=== PATIENT | male | born 1935 | race Caucasian/White ===

== ENCOUNTER 2020-10-21 13:58 | Inpatient (IN) | payer OTHER, MEDICARE ==
[~2020-10-21] VITALS: Ht 180.3 cm; Wt 109.3 kg
[2020-10-21 15:24] LABS: BASOPHILS ABSOLUTE AUTO 0.05 K/mm3 (0.00-0.23); BASOPHILS PERCENT AUTO 1 % (0-2); EOSINOPHILS ABSOLUTE AUTO 0.02 K/mm3 (0.00-0.68); EOSINOPHILS PERCENT AUTO 0 % (0-6); Hematocrit 52.6 % (37.0-53.0); IMMATURE GRAN ABSOLUTE AUTO 0.04 K/mm3 (0.00-0.10); IMMATURE GRAN PERCENT AUTO 0 % (0-1); LYMPHOCYTES ABSOLUTE AUTO 0.81 K/mm3 (0.84-5.20); LYMPHOCYTES PERCENT AUTO 8 % (21-46); MONOCYTES ABSOLUTE AUTO 0.41 K/mm3 (0.16-1.47); MONOCYTES PERCENT AUTO 4 % (4-13); Mean Corpuscular HGB 28.5 pg (26.0-34.0); Mean Corpuscular HGB Conc 32.3 g/dL (31.5-36.5); Mean Corpuscular Volume 88 fL (80-100); Mean Platelet Volume 10.7 fL (9.1-12.4); NEUTROPHILS ABSOLUTE AUTO 9.08 K/mm3 (1.96-9.15); NEUTROPHILS PERCENT AUTO 87 % (41-73); Platelet Count 234 K/mm3 (150-400); RDW Coefficient Variation 12.1 % (11.7-14.2); RDW Standard Deviation 39.3 fL (35.1-46.3); Red Blood Cell Count 5.97 M/mm3 (4.30-5.90); White Blood Cell Count 10.41 K/mm3 (4.00-11.30)
[2020-10-21 15:39] LABS: Alanine Aminotransfer (ALT/SGP 28 U/L (12-78); Albumin, Blood 4.4 g/dL (3.4-5.0); Albumin/Globulin Ratio 1.1 (0.8-1.8); Alk Phos 75 U/L (50-136); Anion Gap 8 mmol/L (6-16); Aspartate Aminotrans (AST/SGOT 25 U/L (12-37); Bilirubin, Total 0.6 mg/dL (0.1-1.0); Blood Urea Nitrogen 14 mg/dL (8-24); Bun/Creatinine Ratio 14.7 (12.0-20.0); CO2, Blood 28 mmol/L (21-32); Calcium, Blood 10.7 mg/dL (8.5-10.1); Chloride, Blood 106 mmol/L (98-108); Creatinine, Blood 0.95 mg/dL (0.60-1.20); Globulin, Blood 4.1 g/dL (2.2-4.0); Glomerular Filtration Rate >60 (60-); Glucose, Blood 128 mg/dL (70-99); Potassium, Blood 3.6 mmol/L (3.5-5.5); Sodium, Blood 142 mmol/L (136-145); Total Protein, Blood 8.5 g/dL (6.4-8.2); Troponin I <0.015 ng/mL (0.000-0.040)
[2020-10-21] MEDS ORDERED: LATA.005SO RIGHTEYE (18:26)
--- NOTE | 2020-10-21 19:45 | NUR ---
PT ARRIVES TRANSFER FROM ED, REPORT TAKEN FROM DENISHA LUJAN. PT ALERT, ORIENTED TO SELF, ABLE TO FOLLOW SIMPLE COMMANDS, HOWEVER PT STS HE DOES NOT KNOW WHERE HE IS AT BUT KNOWS HE IS IN [place]. BELIEVES THE YEAR TO BE 2020. OFTEN CONFUSED BY VS EQUIPMENT, ATTEMPTS TO USE BIOX & CALL LIGHT PHONE. REORIENTED SEVERAL TIMES ON APPROPRIATE USE OF CALL LIGHT, WHICH HE QUICKLY FORGETS. REPORT FAMILY PT HAS DEMENTIA HOWEVER PT DENIES THIS & NO [facility] RECORDS REFLECT DX. MONITOR SHOWS SINUS RHYTHM ISUPREL GTT INF @ 2.5mcg/min UPON ARRIVAL, HR 120s. PLACED ON STANDBY. DR MOSER TO ROOM, UPDATED ON PT STATUS & DRIP. ORDERS TO HAVE ATROPINE & EPI AVAILABLE @ BEDSIDE. DR MOSER CALLS PT TO DISCUSS PLAN FOR SURGERY IN THE MORNING FOR PACEMAKER PLACMENT, VERBAL CONSENT FOR PROCEDURE OBTAINED FROM .
[2020-10-21 20:46] LABS: Influenza A, PCR Negative (NEGATIVE); Influenza B, PCR Negative (NEGATIVE); Resp Syncytial Virus, PCR Negative (NEGATIVE); SARS-Cov-2 (COVID-19) PCR, MMC Negative (NEGATIVE)
--- NOTE | 2020-10-22 | NUR ---
CARDIAC EVENT: TO PT ROOM RELATED TO BRADYCARDIA ALARM. HR 30s, PT SLUMPED OVER IN BED, NOT RESPONSIVE TO VERBAL OR NOXIOUS STIMULI. MONITOR SHOWED CONVERSION TO A SINUS RHYTHM, PT AROUSABLE, CONFUSED. C/O MILD NAUSEA. PULSES PRESENT. HR 70s.
[2020-10-22 00:58] LABS: Source, Urine Clean Catch
[2020-10-22 01:03] LABS: Appearance, Urine Clear (Clear); Bilirubin, Urine Neg (Neg); Blood, Urine 1+ (Neg); Color, Urine Amber (P-Yellow); Glucose Qualitative, Urine Neg (Neg); Ketones, Urine 1+ (Neg); Leukocyte Esterase, Urine 1+ (Neg); Nitrite, Urine Neg (Neg); Protein, Urine 2+ (Neg); Urobilinogen, Urine NORM (Normal)
[2020-10-22 01:09] LABS: Bacteria Many /hpf; Mucus Heavy (0-Heavy); Red Blood Cells, Urine 0-2 /hpf (0-2); Squamous Epithelial Cells Not Seen /hpf (Few)
[2020-10-22 04:00] LABS: BASOPHILS ABSOLUTE AUTO 0.02 K/mm3 (0.00-0.23); BASOPHILS PERCENT AUTO 0 % (0-2); EOSINOPHILS ABSOLUTE AUTO 0.02 K/mm3 (0.00-0.68); EOSINOPHILS PERCENT AUTO 0 % (0-6); Hematocrit 45.8 % (37.0-53.0); Hemoglobin 14.9 g/dL (13.5-17.5); IMMATURE GRAN ABSOLUTE AUTO 0.03 K/mm3 (0.00-0.10); IMMATURE GRAN PERCENT AUTO 0 % (0-1); LYMPHOCYTES ABSOLUTE AUTO 1.29 K/mm3 (0.84-5.20); LYMPHOCYTES PERCENT AUTO 11 % (21-46); MONOCYTES ABSOLUTE AUTO 0.94 K/mm3 (0.16-1.47); MONOCYTES PERCENT AUTO 8 % (4-13); Mean Corpuscular HGB 28.3 pg (26.0-34.0); Mean Corpuscular HGB Conc 32.5 g/dL (31.5-36.5); Mean Corpuscular Volume 87 fL (80-100); Mean Platelet Volume 10.7 fL (9.1-12.4); NEUTROPHILS ABSOLUTE AUTO 9.42 K/mm3 (1.96-9.15); NEUTROPHILS PERCENT AUTO 80 % (41-73); Platelet Count 224 K/mm3 (150-400); RDW Coefficient Variation 12.3 % (11.7-14.2); RDW Standard Deviation 39.2 fL (35.1-46.3); Red Blood Cell Count 5.27 M/mm3 (4.30-5.90); White Blood Cell Count 11.72 K/mm3 (4.00-11.30)
[2020-10-22 04:13] LABS: International Normalized Ratio 1.08; Prothrombin Time Results 11.5 Sec (9.7-11.5)
[2020-10-22 04:14] LABS: Anion Gap 5 mmol/L (6-16); Blood Urea Nitrogen 21 mg/dL (8-24); Bun/Creatinine Ratio 19.6 (12.0-20.0); CO2, Blood 29 mmol/L (21-32); Calcium, Blood 9.8 mg/dL (8.5-10.1); Chloride, Blood 109 mmol/L (98-108); Creatinine, Blood 1.07 mg/dL (0.60-1.20); Glomerular Filtration Rate >60 (60-); Glucose, Blood 126 mg/dL (70-99); Potassium, Blood 4.1 mmol/L (3.5-5.5); Sodium, Blood 143 mmol/L (136-145)
--- NOTE | 2020-10-22 06:42 | NUR ---
SHIFT SUMMARY: NO CHANGES TO PT MENTATION. CONTINUES TO BE CALM & COOPERATIVE, HOWEVER VERY FORGETFUL. PT SLEPT SOUNDLY FOR MOST OF THE NIGHT, AWAKENED FEW TIMES TO REPOSITION SELF. BED ALARM REMAINS IN PLACE PT ATTEMPTS TO GET UP, REQUESTING RESTROOM. EASILY REORIENTED. ABLE TO USE URINAL W/ 1P ASSIST. PT REPORTS NEW ONSET OF PAIN W/ URINATION. UA SENT & RESULTS TO [facility]E W/ NEW ORDERS FOR 1G IV ROCEPHIN DAILY. PT REMAINED SINUS RHYTHM THROUGHOUT SHIFT W/ 1 EPISODE OF BRADYCARDIA WHERE PT APPEARED TO GO INTO JUNCTIONAL RHYTHM W/ A LONG PAUSE & THEN CONVERTED BACK TO SINUS RHYTHM. SEE PREVIOUS NOTE.
--- NOTE | 2020-10-22 08:00 | NUR ---
Receieved report fro Debbie RN & Jamila RN. Patient awake and able to communicate needs, but is very hard of hearing and has signs of some dementia. He is on 2L O2 via NC and sats and sats 100%. He has 18ga IV in LH, flushed and SL and he has LEJ infusing NS at 100 ml/hr. HR in the 60 and plan is to have pacer placement at 1130.
--- NOTE | 2020-10-22 11:34 | NUR ---
Power glide placed in TOMMY and patient peels dresssing and kinked PowerGlide and replaced with 18/10 powerglide and reinforced dressing. He is very confuse and calls frquently and re-directs easily. VSS, See EMR. Removed O2 and sats 96% on RA. He is anxioius about procedure to get done and states "wants out of here". MAEW. HR been in the 60's and no pauses. Removed LEJ intact. Patient continues with NS at 100ml/hr.
--- NOTE | 2020-10-22 12:02 | NUR ---
Patient just left to hospital laboratory technician for pacer placement.
--- NOTE | 2020-10-22 15:56 | NUR ---
Patient returned with security back from lab tester. He was disoriented thinking we brought him back to his house and had to strongly encourage him that he was in ICU, and the plan is to interogate in am and then discharge. Agreed to stay til tomorrow Pacer site has telfa and clear opsite dressing, C/D/I and no current oozing of blood. VSS, See EMR, HR 70-80's. 100 ml/hr NS
--- NOTE | 2020-10-22 17:47 | NUR ---
Patient states that he will stay until tomorrow, he is told that should go home by noon and thenm he states 6am, and just needs to be reoriented to plan. His VSS, See EMR. He has been instructednot to use right arm. He refuses sling and i have pick other battles to get him to do. he sat up and ate 100% dinner and followed instructions. NS continues at 100ml/hr. Uses urinal appropriately.
--- NOTE | 2020-10-22 19:45 | NUR ---
ASSUMED CARE: REPORT TAKEN FROM RN BARBARA. PT SITTING UP IN BED, AWAKES & INTERACTS W/ STAFF UPON ENTERING. ORIENTED TO SELF & PLACE, HOWEVER PT CONFUSED TO WHEN HE IS GOING HOME TOMORROW AFTER SEVERAL REMINDERS FROM STAFF. PT IS FIXATED ON CALLING SEVERAL PEOPLE, REFUSES TO PUT PHONE AWAY & IS ADAMANT STAFF GIVE HIM INFORMATION ABOUT A RELATIVE'S LOCATION & PHONE #, HE IS NOT ABLE TO ELABORATE. WHEN ASKED F/U QUESTIONS, PT APPEARS CONFUSED & RESPONDS W/ UNRELATED SUBJECTS. THIS CONFUSION & INC AGITATION IS MARKEDLY WORSE THAN WHEN THIS RN GAVE CARE YESTERDAY. BASELINE MENTATION INDISTINGUISHABLE AFTER SPEAKING W/ FAMILY. PT IS OTHER ENRIQUE STABLE. RR EVEN & UNLABORED. LS CLEAR THROUGHOUT. HRR, PACED ATRIAL RHYTHM ON MONITOR. HR 60s-70s. SBP 160s. SURGICAL SITE TO R UPPER CHEST APPEARS WNL, DRESSING C/D/I. PLAN FOR PACEMAKER INTERROGATION IN THE AM & PLAN FOR DC.
--- NOTE | 2020-10-23 | NUR ---
CONFUSION/AGGRESSION: PT INCREASINGLY CONFUSED. CALLING OUT FOR "ELBERT" & ASKING IF "SOMEONE IS IN THE KITCHEN". SEVERAL ATTEMPTS @ REDIRECTION & VERBAL CUES BEFORE PT WAS ABLE TO BE REORIENTED, HOWEVER ONLY MOMENTARILY TO SELF & PLACE. DOES NOT RECEIVE INSTRUCTION WELL, REPLIES W/ VERBAL AGGRESSION & CURSING. DESPITE BED ALARM, PT CONTINUES TO SWING HIS LEGS OVER THE RAILS & QUICKLY POSITION HIMSELF IN VERY UNSAFE POSITIONS, NEARLY FALLING OUT OF BED. SANDRA BOWSER UPDATED ON PT STATUS. VERBAL ORDERS GIVEN FOR VEST & SWB RESTRAINTS. APPLIED & TOLERATING WELL AT THIS TIME. SEE RESTRAINT ASSESSMENTS.
--- NOTE | 2020-10-23 02:40 | NUR ---
AGITATION/RESTLESSNESS PT CONTINUES TO BE RESTLESS AND AGITATED. ORIENTED TO SELF ONLY AT THIS TIME. CONFUSED CONVERSATION. DR. CHONG NOTIFIED AND NEW ORDER RECEIVED FOR HALDOL IV.
--- NOTE | 2020-10-23 03:00 | NUR ---
OXYGEN/DECREASED SATS O2 SATS DECREASED TO 85-86% WHILE ASLEEP. INCREASE TO LOW 90s WHEN AWAKE. O2 2L NC ON AT THIS TIME.
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
--- NOTE | 2020-10-23 07:33 | NUR ---
Receivedreport from Jamila DENNY and Shellie RN. Patient sleeping in bed and awakened him for report and repositioning. He started to get loud and i explained to him that is not acceptable behavior. He started to get out of bed and came back in room and walked him to bathroom. He sat there for about ten minutes and placed him back in bed. He is slightly unstable on feet and needs assistance. He is on RA and sats >90%. I took him out of soft wrist and isabella restraint, he is now calm and resting. Right pacer site looks C/D/I and no signs of bleeding. He refuses to wear sling and when talking with family yesterday he will take off as soon as he leaves hospital. On report he was being dual paced in the 60 and is currently 66 and refuses to have monitor hooked up.
--- NOTE | 2020-10-23 09:22 | NUR ---
[employer] rep called and wanted remote transmission and went to PCU and aquiered device and hooked up and was sent to rep than cardiology. Patient has been resting and will allow to sleep until possible discharge. VSS, See EMR. NS continues at TKO.
--- NOTE | 2020-10-23 10:41 | NUR ---
Patient had fall after climbing out of bed with bed alarm on and failed seeMATTY. He stated he hit his head and palpated and no bumps or painful area's. he was able with assist and stood and walked to bathroom wit one assist. He stated he feels weak. I talked with family and they stated his baseline he walks his dogs daily. Talked with Dr Ron and she will place on medical floor back hallway. He is back in bed and bed alarm set and resting, he stated he would stay to see if gets stronger. Daughter Liliana stated that they could take care of even after me stated that he was very weak and unstable. He has 2L O2 via NC while sleeping, VSS, See EMR.
--- NOTE | 2020-10-23 12:57 | NUR ---
Transferred patient to [facility] via icu bed. He transferred with one assist to bathroom and 1 to [facility] bedplaced diet and PT/OT orders as well as tele and transfer. Spoke with Sangita DENNY and she helped with patient and got settled. She placed bed alarm on prior to me leaving.
--- NOTE | 2020-10-23 18:36 | NUR ---
SHIFT SUMMARY PT WAS TRANSFERED FROM ICU FOLLOWING A FALL HE SUSTAINED THIS AM. THE PT ARRIVED W NO S/S OF TRAUMA FROM FALL. PT IS VERY CONFUSED AND FORGETS STAFF AND SITUATION FREQUENTLY. THE PT WAS EXPERIENCING DIFFICULTY VOIDING SO HE WAS BLADDER SCANNED WHICH REVIELED RETENTION OF >999, STRAIGHT CATH REMOVED 700ML. 3 HOURS LATER ANOTHER BLADDER SCAN WAS DONE WHICH SHOWED RETENTION OF 866ML AND STRAIGHT CATH REMOVED 500ML BBUT PT DID NOT TOLERATE THE STRAIGHT CATH WELL. DR. WILSON WAS CONTACTED AND HIS FLUIDS WERE DC'D AND FLOMAX WAS STARTED. PT DENIES ANY HX OF BPH OR DEMENTIA.PTHAS DENIED ANY PAIN OR NAUSEA THIS SHIFT. WCTM.
--- NOTE | 2020-10-23 20:44 | NUR ---
1944 REPORT RECEIVED FROM DENISHA JACKSON; PTS RIGHT UPPER CHEST PACEMAKER DRESSING DRY AND INTACT; TELEMETRY REFLECTS NSR PER ERROL--CONE WORKER; ALERT AND ORIENTED X 2, ABLE TO FOLLOW SIMPLE VERBAL COMMANDS; YELLOW FALL GOWN APPLIED PT HAD FALL TODAY EARLIER IN ICU; BED ALARM APPLIED FOR SAFETY.
--- NOTE | 2020-10-24 04:07 | NUR ---
SHIFT SUMMARY: 85 Y/O OBESE MALE HAD RESTLESS NIGHT FIRST HALF OF SHIFT WITH INABILITY TO VOID AFTER MULTIPLE ATTEMPTS ON BSC; PT WAS BLADDER SCANNED FOR >999ML IN BLADDER; PT WAS THEN STRAIGHT CATHED FOR 950ML CLEAR YELLOW URINE WITH PT VOICING HE FELT MUCH BETTER AFTERWARDS; PT WAS THEN ABLE TO REST COMFORTABLY REST OF SHIFT; DENIES PAIN OR NAUSEA; PTS RIGHT UPPER CHEST DRESSING SITE DRY AND INTACT (PACEMAKER SITE) DRY AND INTACT; PT REFUSING TO WEAR RIGHT ARM SLING; ALERT AND ORIENTED X 2, ABLE TO FOLLOW SIMPLE VERBAL COMMANDS; PT WAS PLACED IN YELLOW GOWN BY NURSING STAFF AFTER FALL PREVIOUS DAY IN ICU; BED ALARM APPLIED, BED LOW POSITION WITH CALL LIGHT AT SIDE.
[2020-10-24] MEDS ORDERED: CEPH500 PO (12:36)
[2020-10-24] MEDS ORDERED: TAMS.4ER PO (12:36)
[2020-10-24] MEDS ORDERED: LACT PO (12:38)
--- NOTE | 2020-10-24 16:43 | NUR ---
PATIENT DISCHARGED TO HOME IN THE COMPANY OF HIS SON CHULA. DISCUSSED WITH PATIENT AND HIS SON ALL PACEMAKER DISCHARGE INSTRUCTIONS AND FOLLOW UP APPOINTMENTS. PATIENT ALSO WENT HOME WITH CONNOLLY CATHETER; PRINTED AND VERBAL INSTRUCTIONS GIVEN ON RATIONALE FOR AND PROPER CARE OF URINARY CATHETER. POWERGLIDE IV REMOVED FROM LUZ WITHOUT INCIDENT, SITE SECURED WITH GAUZE AND COBAN. PATIENT LEFT UNIT VIA W/C AT 1330.
== END 2020-10-24 15:41 | disposition home health service (06) | DRG 244 ==
LOC: ER 13:58 → MEDS 18:47 → ICUE 18:47 → ICUW 18:47 → ICUE 19:03 → MEDS 10-23 12:02
PROVIDERS: Internal Medicine; Internal Medicine Cardiovascular Disease; Physician Assistant; ADMIT Family Medicine
PROC: 0JH606Z Insertion of Pacemaker, Dual Chamber into Chest Subcutaneous Tissue and Fascia, Open Approach (ICD-10-PCS; principal; 2020-10-22)
PROC: 02H63JZ Insertion of Pacemaker Lead into Right Atrium, Percutaneous Approach (ICD-10-PCS; 2020-10-22)
PROC: 02HK3JZ Insertion of Pacemaker Lead into Right Ventricle, Percutaneous Approach (ICD-10-PCS; 2020-10-22)
DX: I44.0 Atrioventricular block, first degree (principal); E83.52 Hypercalcemia; F03.90 Unspecified dementia, unspecified severity, without behavioral disturbance, psychotic disturbance, mood disturbance, and anxiety; I49.5 Sick sinus syndrome; R73.9 Hyperglycemia, unspecified; S09.90XA Unspecified injury of head, initial encounter; W19.XXXA Unspecified fall, initial encounter; Z87.891 Personal history of nicotine dependence; R33.9 Retention of urine, unspecified; Y92.238 Other place in hospital as the place of occurrence of the external cause; Z78.1 Physical restraint status
CPT/HCPCS: 0241U; 33208; 36415; 70450; 71045; 71046; 72125; 76937; 80048; 80053; 81001; 83690; 83880; 84484; 85025; 85610; 86850; 86900; 86901; 87086; 93005; 93010; 93306; 96374; 97162; 97166; 97530; 97535; 99152; 99153; 99285-25; A9270; A9270-GY; C1751; C1781; C1785; C1894; C1898; J0461; J0690; J0696; J1630; J1644; J2250; J2405; J2704; J3010; J7030; J7040; J7050

== ENCOUNTER 2022-04-28 08:51 | Day surgery (SDC) | payer OTHER ==
[~2022-04-28] VITALS: Ht 180.3 cm; Wt 106.4 kg
[~2022-04-28 08:51] MED LIST: CEPH500 PO; DONE5 PO; FURO40 PO; LACT PO; LATA.005SO RIGHTEYE; POTA10T PO; TAMS.4ER PO; TIMO.5OPSO BOTHEYES
--- NOTE | 2022-04-28 11:17 | NUR ---
04/28/22 1117 Ankit Flor PRESENT FOR DISCHARGE INSTRUCTIONS
== END 2022-04-28 11:04 | disposition home or self-care (01) ==
LOC: ORSCSDS 08:51
PROVIDERS: Ophthalmology
PROC: 08RJ3JZ Replacement of Right Lens with Synthetic Substitute, Percutaneous Approach (ICD-10-PCS; principal; 2022-04-28 10:00)
DX: H25.13 Age-related nuclear cataract, bilateral (principal); H21.81 Floppy iris syndrome; H52.203 Unspecified astigmatism, bilateral; I10 Essential (primary) hypertension; F03.90 Unspecified dementia, unspecified severity, without behavioral disturbance, psychotic disturbance, mood disturbance, and anxiety; Z95.0 Presence of cardiac pacemaker; I49.5 Sick sinus syndrome; Z79.899 Other long term (current) drug therapy
CPT/HCPCS: J2250; J3010; J3301; J7040; V2632

== ENCOUNTER 2022-05-19 08:51 | Day surgery (SDC) | payer OTHER ==
[~2022-05-19] VITALS: Ht 177.8 cm; Wt 103.4 kg
[~2022-05-19 08:51] MED LIST changes: +XALATAN2.5 ML BOTHEYES
--- NOTE | 2022-05-19 09:21 | NUR ---
05/19/22 0921 Araseli Jackson @ 0970, SHAYY @ 0914
--- NOTE | 2022-05-19 11:00 | NUR ---
05/19/22 1100 Ankit Flor DISCUSSED DISCHARGE INSTRUCTIONS WITH SON PRIOR TO PAITENT LEAVING
== END 2022-05-19 10:55 | disposition home or self-care (01) ==
LOC: ORSCSDS 08:51
PROVIDERS: Ophthalmology
PROC: 08RK3JZ Replacement of Left Lens with Synthetic Substitute, Percutaneous Approach (ICD-10-PCS; principal; 2022-05-19 10:00)
DX: H25.12 Age-related nuclear cataract, left eye (principal); H52.202 Unspecified astigmatism, left eye; H21.81 Floppy iris syndrome; I10 Essential (primary) hypertension; Z79.899 Other long term (current) drug therapy; Z79.82 Long term (current) use of aspirin; E66.9 Obesity, unspecified; Z68.32 Body mass index [BMI] 32.0-32.9, adult
CPT/HCPCS: J2001; J2250; J3010; J3301; J7040; V2632

== ENCOUNTER 2023-03-27 13:58 | Emergency (ER) | payer OTHER ==
[~2023-03-27] VITALS: Ht 167.6 cm; Wt 81.7 kg
[2023-03-27 14:23] VITALS: BP 118/97
[2023-03-27 15:45] LABS: Source, Urine Clean Catch
[2023-03-27 15:56] LABS: Appearance, Urine Hazy (Clear); Bilirubin, Urine Neg (Neg); Blood, Urine 4+ (Neg); Color, Urine Yellow (P-Yellow); Glucose Qualitative, Urine Neg (Neg); Ketones, Urine Neg (Neg); Leukocyte Esterase, Urine 3+ (Neg); Nitrite, Urine Neg (Neg); Protein, Urine 1+ (Neg); Urobilinogen, Urine NORM (Normal); pH, Urine 6.5 (5.0-8.0)
[2023-03-27 16:15] LABS: Bacteria Many /hpf; Mucus Light (0-Heavy); Squamous Epithelial Cells Rare /hpf (Few); White Blood Cells, Urine TNTC /hpf (0-5)
[2023-03-27] MEDS ORDERED: CEPH500 PO (16:58)
== END 2023-03-27 15:54 | disposition home or self-care (01) ==
LOC: ER 13:58
PROVIDERS: Physician Assistant
DX: R33.9 Retention of urine, unspecified (principal); N39.0 Urinary tract infection, site not specified; F03.90 Unspecified dementia, unspecified severity, without behavioral disturbance, psychotic disturbance, mood disturbance, and anxiety; Z87.891 Personal history of nicotine dependence
CPT/HCPCS: 51702; 51798; 81001; 87086; 99283-25

== ENCOUNTER 2023-05-22 11:31 | Emergency (ER) | payer OTHER ==
[~2023-05-22] VITALS: Ht 177.8 cm; Wt 81.7 kg
[2023-05-22 11:45] VITALS: BP 146/74
== END 2023-05-22 13:00 | disposition home or self-care (01) ==
LOC: ER 11:31
DX: T83.038A Leakage of other urinary catheter, initial encounter (principal); Z79.899 Other long term (current) drug therapy; Z87.891 Personal history of nicotine dependence
CPT/HCPCS: 51702; 99283

== ENCOUNTER 2023-10-06 12:27 | Inpatient (IN) | payer OTHER ==
[~2023-10-06] VITALS: Ht 172.7 cm; Wt 116.1 kg
[2023-10-06 13:21] LABS: Source, Urine Foley catheter
[2023-10-06 13:29] LABS: Appearance, Urine Cloudy (Clear); Bilirubin, Urine Neg (Neg); Blood, Urine 4+ (Neg); Color, Urine Yellow (P-Yellow); Glucose Qualitative, Urine Neg (Neg); Ketones, Urine Neg (Neg); Leukocyte Esterase, Urine 3+ (Neg); Nitrite, Urine Pos (Neg); Protein, Urine 2+ (Neg); Urobilinogen, Urine NORM (Normal)
[2023-10-06 13:38] LABS: Bacteria Many /hpf; Squamous Epithelial Cells Rare /hpf (Few); White Blood Cells, Urine TNTC /hpf (0-5)
[2023-10-06 13:41] LABS: Albumin/Globulin Ratio 0.8 (0.8-1.8); Bilirubin, Total 1.2 mg/dL (0.1-1.0); Bun/Creatinine Ratio 11.2 (12.0-20.0); Calcium, Blood 8.6 mg/dL (8.5-10.1); Creatinine, Blood 2.51 mg/dL (0.60-1.20); Globulin, Blood 3.7 g/dL (2.2-4.0); Potassium, Blood 3.3 mmol/L (3.5-5.5); Total Protein, Blood 6.7 g/dL (6.4-8.2)
[2023-10-06 14:18] LABS: BASOPHILS ABSOLUTE AUTO 0.04 K/mm3 (0.00-0.23); BASOPHILS PERCENT AUTO 0 % (0-2); EOSINOPHILS ABSOLUTE AUTO 0.01 K/mm3 (0.00-0.68); EOSINOPHILS PERCENT AUTO 0 % (0-6); Hematocrit 38.6 % (37.0-53.0); Hemoglobin 13.4 g/dL (13.5-17.5); IMMATURE GRAN ABSOLUTE AUTO 0.05 K/mm3 (0.00-0.10); IMMATURE GRAN PERCENT AUTO 0 % (0-1); LYMPHOCYTES ABSOLUTE AUTO 0.25 K/mm3 (0.84-5.20); LYMPHOCYTES PERCENT AUTO 2 % (21-46); MONOCYTES ABSOLUTE AUTO 0.86 K/mm3 (0.16-1.47); MONOCYTES PERCENT AUTO 6 % (4-13); Mean Corpuscular HGB 29.3 pg (26.0-34.0); Mean Corpuscular HGB Conc 34.7 g/dL (31.5-36.5); Mean Corpuscular Volume 85 fL (80-100); Mean Platelet Volume 10.5 fL (9.1-12.4); NEUTROPHILS ABSOLUTE AUTO 12.29 K/mm3 (1.96-9.15); NEUTROPHILS PERCENT AUTO 91 % (41-73); Platelet Count 228 K/mm3 (150-400); RDW Coefficient Variation 12.1 % (11.7-14.2); RDW Standard Deviation 36.7 fL (35.1-46.3); Red Blood Cell Count 4.57 M/mm3 (4.30-5.90)
--- NOTE | 2023-10-06 18:12 | NUR ---
Met with pt's son Maynor in ED room to discuss pending admission, pt's health history, and current health concerns. Maynor states his dad's code status should be DNR, and this is something he has discussed with his siblings, and with the patient over a year ago. SILVESTRE completed, and pt's CODE status changed to DNR by Dr. Ron. Plan to see pt and continue to follow him t/o this hospitalization.
[2023-10-06 18:56] VITALS: BP 113/65
[2023-10-06 19:13] LABS: Influenza A, PCR NEGATIVE (NEGATIVE); Influenza B, PCR NEGATIVE (NEGATIVE); Resp Syncytial Virus, PCR NEGATIVE (NEGATIVE)
[2023-10-06 19:15] LABS: SARS-Cov-2 (COVID-19) PCR, MMC POSITIVE (NEGATIVE)
[2023-10-07] MEDS ORDERED: FINA5 PO (00:38)
[2023-10-07] MEDS ORDERED: MULVITA PO (00:39)
[2023-10-07 03:14] VITALS: BP 113/59
[2023-10-07 06:31] LABS: BASOPHILS ABSOLUTE AUTO 0.04 K/mm3 (0.00-0.23); BASOPHILS PERCENT AUTO 0 % (0-2); EOSINOPHILS ABSOLUTE AUTO 0.12 K/mm3 (0.00-0.68); EOSINOPHILS PERCENT AUTO 1 % (0-6); Hematocrit 34.6 % (37.0-53.0); Hemoglobin 11.8 g/dL (13.5-17.5); IMMATURE GRAN ABSOLUTE AUTO 0.09 K/mm3 (0.00-0.10); IMMATURE GRAN PERCENT AUTO 1 % (0-1); LYMPHOCYTES ABSOLUTE AUTO 0.93 K/mm3 (0.84-5.20); LYMPHOCYTES PERCENT AUTO 6 % (21-46); MONOCYTES PERCENT AUTO 9 % (4-13); Mean Corpuscular HGB 28.9 pg (26.0-34.0); Mean Corpuscular HGB Conc 34.1 g/dL (31.5-36.5); Mean Corpuscular Volume 85 fL (80-100); Mean Platelet Volume 10.9 fL (9.1-12.4); NEUTROPHILS PERCENT AUTO 84 % (41-73); Platelet Count 196 K/mm3 (150-400); RDW Coefficient Variation 12.3 % (11.7-14.2); RDW Standard Deviation 37.3 fL (35.1-46.3); Red Blood Cell Count 4.09 M/mm3 (4.30-5.90); White Blood Cell Count 16.38 K/mm3 (4.00-11.30)
[2023-10-07 06:47] LABS: Bun/Creatinine Ratio 12.3 (12.0-20.0); Creatinine, Blood 1.46 mg/dL (0.60-1.20); Potassium, Blood 3.1 mmol/L (3.5-5.5)
[2023-10-07 08:10] VITALS: BP 110/52
[2023-10-07 15:47] VITALS: BP 152/71
--- NOTE | 2023-10-07 15:48 | NUR ---
SHIFT SUMMARY PT SLEEPING, RESTING QUIETLY AT START OF SHIFT. PT DID NOT WANT TO WAKE UP AND EAT BREAKFAST. PT IS VERY [place]. DR WILSON IN TO SEE PT EARLY THIS AM. PT STILL SLEEPY. PT/OT TO BE ORDERED FOR TOMORROW. PT LATER WOKE UP AND SAT UP TO EOB, SETTING OFF BED ALARM. PT WANTING TO GET UP TO CHAIR AT BS. PT ASSISTED USING FWW AND SBA. PT NOT WANTING ANYONE TO HELP HIM. PT REMAINS IN RECLINER AT BS WATCHING TV; CHAIR ALARM IN PLACE. DENIES FURTHER NEEDS AT THIS TIME. CALL LT IN REACH.
--- NOTE | 2023-10-07 18:53 | NUR ---
PT UP TO BSC FOR LRG BM. 1P SBA USING FWW. CONTINENT OF BOWEL IF HE DOESN'T HAVE TO WAIT TO LONG.
[2023-10-07 20:11] VITALS: BP 118/69
--- NOTE | 2023-10-08 00:42 | NUR ---
RADHA CAPUTO, PT ANXIOUS TONIGHT PT FREQUENTLY WANTING TO GET UP , PT VERY [place] SO HAVE TO TALK LOUDLY FOR PT TO HEAR SOME OF WHAT IS BEING SAID TO HIM. PT HAS CONNOLLY CATH IN AND IT APPEARS TO BE DRAINING. PT TAKING OF TELE VERY FREQUENTLY. PT WAS GIVEN TYLENOL BUT NOT SLEEPING. PT NOW UP TO RECLINER WITH CHAIR ALARM ON. CALL LIGHT IN REACH.
[2023-10-08 02:43] VITALS: BP 147/67
--- NOTE | 2023-10-08 05:12 | NUR ---
SHIFT SUMMERY, PT UP AND DOWN ALL NIGHT PT SETTING OFF BED ALARM FREQUNTLY. PT SAT ON COMMODE NO RESULTS. PULLED OFF MULTIPLE TELE PADS AND ON END OF TELE. PT PULLED OUT IV AND ANOTHER WAS PLACED. BED ALARM ON BED IN LOW POSITION, CALL LIGHT IN REACH.
[2023-10-08 05:16] LABS: BASOPHILS ABSOLUTE AUTO 0.04 K/mm3 (0.00-0.23); BASOPHILS PERCENT AUTO 0 % (0-2); EOSINOPHILS ABSOLUTE AUTO 0.03 K/mm3 (0.00-0.68); EOSINOPHILS PERCENT AUTO 0 % (0-6); Hematocrit 37.8 % (37.0-53.0); Hemoglobin 12.5 g/dL (13.5-17.5); IMMATURE GRAN PERCENT AUTO 1 % (0-1); LYMPHOCYTES ABSOLUTE AUTO 0.78 K/mm3 (0.84-5.20); LYMPHOCYTES PERCENT AUTO 5 % (21-46); MONOCYTES ABSOLUTE AUTO 1.31 K/mm3 (0.16-1.47); MONOCYTES PERCENT AUTO 8 % (4-13); Mean Corpuscular HGB 28.4 pg (26.0-34.0); Mean Corpuscular HGB Conc 33.1 g/dL (31.5-36.5); Mean Corpuscular Volume 86 fL (80-100); Mean Platelet Volume 10.6 fL (9.1-12.4); NEUTROPHILS PERCENT AUTO 86 % (41-73); Platelet Count 213 K/mm3 (150-400); RDW Coefficient Variation 12.3 % (11.7-14.2); White Blood Cell Count 15.56 K/mm3 (4.00-11.30)
[2023-10-08 06:19] LABS: Albumin, Blood 2.3 g/dL (3.4-5.0); Anion Gap 7 mmol/L (6-16); Blood Urea Nitrogen 16 mg/dL (8-24); Bun/Creatinine Ratio 15.4 (12.0-20.0); CO2, Blood 24 mmol/L (21-32); Calcium, Blood 8.4 mg/dL (8.5-10.1); Chloride, Blood 111 mmol/L (98-108); Creatinine, Blood 1.04 mg/dL (0.60-1.20); Glomerular Filtration Rate 70 (60-); Glucose, Blood 112 mg/dL (70-99); Phosphorus, Blood 1.9 mg/dL (2.5-4.9); Potassium, Blood 3.3 mmol/L (3.5-5.5); Sodium, Blood 142 mmol/L (136-145)
[2023-10-08 07:47] VITALS: BP 130/70
--- NOTE | 2023-10-08 09:01 | NUR ---
PATIENT PULLED HIS CONNOLLY CATHETER OUT AND IT WAS BLEEDING ALL OVER THE BED. PATIENT IS CONFUSED AND AGITATED. NOTIFIED DR. FARRELL. RECEIVED ORDER TO GIVE 2 MG HALOPERIDOL LACTATE IV NOW, TORADOL IV 15 MG NOW AND DC'D TELEMETRY NOW.
[2023-10-08 16:43] VITALS: BP 142/65
[2023-10-08 16:50] LABS: Source, Urine Foley catheter
[2023-10-08 17:24] LABS: Appearance, Urine Cloudy (Clear); Bilirubin, Urine Neg (Neg); Blood, Urine 5+ (Neg); Color, Urine Yellow (P-Yellow); Glucose Qualitative, Urine Neg (Neg); Ketones, Urine 1+ (Neg); Leukocyte Esterase, Urine 1+ (Neg); Nitrite, Urine Neg (Neg); Protein, Urine 2+ (Neg); Specific Gravity, Urine 1.015 (1.003-1.022); Urobilinogen, Urine NORM (Normal)
[2023-10-08 17:44] LABS: Red Blood Cells, Urine TNTC /hpf (0-2)
[2023-10-08 17:45] LABS: Bacteria Few /hpf; Squamous Epithelial Cells Not Seen /hpf (Few)
--- NOTE | 2023-10-08 18:20 | NUR ---
SHIFT SUMMARY: PATIENT IS AWAKE, ALERT AND ORIENTED TO SELF ONLY. PATIENT IS VERY PAMUNKEY, IMPULSIVE, CONFUSED AND DOES NOT USES CALL LIGHT. PATIENT WAS AGIGATED THIS AM AND PULLED HIS CONNOLLY CATH OUT, MEDICATED c HALDOL c GREAT EFFECT AND SLEPT FOR ABOUT 4 HRS. 16 FR CONNOLLY PLACED, PATENT DRAINING YELLOW c SOME BLOOD AND CLOTS IN URINE TO GRAVITY. PATIENT RECEIVED IV ABX AND SCHEDULED MEDS PER EMAR. VITAL SIGNS REVIEWED. PIV TO L WRIST SALINE LOCKED. BED ALARM ON FOR SAFETY. CALL LIGHT IN REACH. PATIENT SISTER (DEISY) CALLED THIS AM, MEDICAL UPDATE GIVEN TO DEISY. THIS RN EDUCATE DEISY THAT THIS RN CAN ONLY COMMUNICATE TO ONE FAMILY MEMBER AND IF SHE CAN PASS THE INFORMATION TO THE REST OF PATIENT FAMILY IT WOULD BE HELPFUL FOR PATIENT SAFETY. ALSO THIS RN INFORMED EDISY IF THERE ARE ANY CHANGES TO PATIENT CONDITION, THAT THIS RN WILL NOTIFIED HER. DEISY VERBALIZED UNDERSTANDING AND NO FURTHER QUESTIONS.
[2023-10-08 20:14] VITALS: BP 131/71
--- NOTE | 2023-10-09 02:55 | NUR ---
SHIFT SUMMERY, PT ALL SHIFT TRYING TO GET OUT OF BED, EARLIERPT HAD PULLED OUT CATH AND YESTDAY 2 IVS. PT HAVING A FEW BLOOD CLOTS TO CONNOLLY CATH TUBING. PT PULLED UP IN BED AND PUT BACK TO BED MULTIPLE TIMES. PT GIVEN HS MEDS INCLUDING TYLENOL AND IM HALDOL. NO CAHNGE PT STILL TUGING AT CONNOLLY CATH AND ABLE TO TAKE OFF COBAN AROUND IV BEFORE HE COULD BE STOPPED. SR CALLED AND PO ZYPREXA GIVEN NO CHANGE. PT AMBULATED MULTILE TIMES IN PEREZ, GIVEN SNACK TV TURNED ON CAHNELS CHANGED TV OFF. LIGHTS OFF, LIGHTS ON. PT STILL GETTING OUT OF BED AND ATTEMPTING TO REMOVE CONNOLLY AND IV. ORDER FOR GOPI VEST GIVEN. VEST PLACED ON PT. CHECKED ON PT PT HAD SLID DOWN IN BED TO FOOT AND HAF FEET DANGLING OFF AND WAS PILLING AT CONNOLLY CATH BAG. AGAIN PT PULLED UP IN BED VEST TIES PLACED HIGHER IN BED. PT THEN RIPPING OFF VEST. HALDOL GIVEN IM AND SOFT CULFFS APPLYED. PT C/O BEING COLD WARM BLANKET APPLYED. PT TOOK BLANKETS OFF AND THROUGH THEM BEHIND HIS HEAD. PT COVERD UP SEVERAL MORE TIMES AND REMOVED BLANKETS AND THROUGH BEHIND HEAD. BUSY VEST GIVEN FOR PT FOR DISTRACTON. CALL LIGHT IN REACH BED ALRM ON. CONNOLLY CATH DRAING WITH FEW BLOOD CLOTS SEEN.
[2023-10-09 06:06] VITALS: BP 137/66
[2023-10-09 06:11] LABS: BASOPHILS ABSOLUTE AUTO 0.05 K/mm3 (0.00-0.23); BASOPHILS PERCENT AUTO 0 % (0-2); EOSINOPHILS ABSOLUTE AUTO 0.19 K/mm3 (0.00-0.68); EOSINOPHILS PERCENT AUTO 1 % (0-6); Hematocrit 37.5 % (37.0-53.0); Hemoglobin 12.6 g/dL (13.5-17.5); IMMATURE GRAN ABSOLUTE AUTO 0.08 K/mm3 (0.00-0.10); IMMATURE GRAN PERCENT AUTO 1 % (0-1); LYMPHOCYTES ABSOLUTE AUTO 1.02 K/mm3 (0.84-5.20); LYMPHOCYTES PERCENT AUTO 8 % (21-46); MONOCYTES ABSOLUTE AUTO 1.02 K/mm3 (0.16-1.47); MONOCYTES PERCENT AUTO 8 % (4-13); Mean Corpuscular HGB 28.9 pg (26.0-34.0); Mean Corpuscular HGB Conc 33.6 g/dL (31.5-36.5); Mean Corpuscular Volume 86 fL (80-100); Mean Platelet Volume 11.1 fL (9.1-12.4); NEUTROPHILS ABSOLUTE AUTO 10.89 K/mm3 (1.96-9.15); NEUTROPHILS PERCENT AUTO 82 % (41-73); Platelet Count 226 K/mm3 (150-400); RDW Coefficient Variation 12.1 % (11.7-14.2); RDW Standard Deviation 38.5 fL (35.1-46.3); Red Blood Cell Count 4.36 M/mm3 (4.30-5.90); White Blood Cell Count 13.25 K/mm3 (4.00-11.30)
[2023-10-09 06:48] LABS: Calcium, Blood 8.3 mg/dL (8.5-10.1); Magnesium, Blood 1.7 mg/dL (1.6-2.4); Potassium, Blood 3.1 mmol/L (3.5-5.5)
[2023-10-09 08:24] VITALS: BP 137/62
[2023-10-09 15:16] VITALS: BP 123/57
--- NOTE | 2023-10-09 18:22 | NUR ---
SHIFT SUMMARY MR LARA HAS BEEN SLEEPY THIS SHIFT. HE HAS MUMBLED ANSWERS, SOME YES/NO ANSWERS. HE WAS MORE AWAKE EARLIER IN THE SHIFT WHEN HE WAS ABLE TO TAKE HIS MEDICINES WITH MUCH ENCOURAGEMENT AND WAS PULLING AND THRASHING HIS ARMS WHEN THE RESTRAINTS WERE REMOVED FOR ASSESSMENT. SOFT WRIST RESTRAINTS WERE REMOVED AT 1515HRS WHEN PT SETTLED AND FAMILY ARRIVED TO WATCH HIM WHILE VIRTUAL CAMERA WAS BEING SET UP IN THE ROOM, WHICH IS NOW ACTIVE. HE WAS GIVEN A BED BATH, HAS BEEN TURNED AND REPOSITIONED, ORAL CARE AND CONNOLLY CARE - HE WAS ABLE TO PARTICIPATE IN HIS CARE BUT IN A VERY LIMITED WAY, ENCOURAGED TO WAKE UP BUT HE WAS NOT GIVEN 1700HRS MEDICATIONS D/T SLEEPYNESS/ASPIRATION RISK. NOTED TO HAVE CHIPS IN HIS DENTURES ON ORAL CARE AND WHEN HIS FAMILY ARRIVED HIS SISTER WAS CONCERNED ABOUT THE CHIPS IN HIS DENTURES. BED LOW, CALL LIGHT IN REACH, VIRTUAL CAMERA. BED ALARM ON.
[2023-10-09 21:19] VITALS: BP 144/68
[2023-10-10 02:54] VITALS: BP 152/82
--- NOTE | 2023-10-10 05:01 | NUR ---
SLPET MOST OF SHIFT. PLEASANT AND EASILY REDIRECTED WHEN AWAKE. FAMILY WANTS TO TAKE HIM HOME TODAY. BED IN LOW POSITION. CALL LIGHT WITHIN REACH.
[2023-10-10 08:29] VITALS: BP 147/78
[2023-10-10 09:21] LABS: BASOPHILS ABSOLUTE AUTO 0.04 K/mm3 (0.00-0.23); BASOPHILS PERCENT AUTO 0 % (0-2); EOSINOPHILS ABSOLUTE AUTO 0.27 K/mm3 (0.00-0.68); EOSINOPHILS PERCENT AUTO 3 % (0-6); Hematocrit 38.2 % (37.0-53.0); Hemoglobin 12.7 g/dL (13.5-17.5); IMMATURE GRAN ABSOLUTE AUTO 0.06 K/mm3 (0.00-0.10); IMMATURE GRAN PERCENT AUTO 1 % (0-1); LYMPHOCYTES ABSOLUTE AUTO 1.03 K/mm3 (0.84-5.20); LYMPHOCYTES PERCENT AUTO 10 % (21-46); MONOCYTES ABSOLUTE AUTO 0.92 K/mm3 (0.16-1.47); MONOCYTES PERCENT AUTO 9 % (4-13); Mean Corpuscular HGB 28.7 pg (26.0-34.0); Mean Corpuscular HGB Conc 33.2 g/dL (31.5-36.5); Mean Corpuscular Volume 86 fL (80-100); Mean Platelet Volume 10.4 fL (9.1-12.4); NEUTROPHILS ABSOLUTE AUTO 8.39 K/mm3 (1.96-9.15); NEUTROPHILS PERCENT AUTO 78 % (41-73); Platelet Count 257 K/mm3 (150-400); RDW Coefficient Variation 12.5 % (11.7-14.2); RDW Standard Deviation 39.5 fL (35.1-46.3); Red Blood Cell Count 4.43 M/mm3 (4.30-5.90); White Blood Cell Count 10.71 K/mm3 (4.00-11.30)
[2023-10-10 09:54] LABS: Bun/Creatinine Ratio 18.1 (12.0-20.0); Calcium, Blood 8.2 mg/dL (8.5-10.1); Creatinine, Blood 0.83 mg/dL (0.60-1.20); Potassium, Blood 3.2 mmol/L (3.5-5.5)
[2023-10-10 13:34] VITALS: BP 115/60
--- NOTE | 2023-10-10 16:31 | NUR ---
DAY SHIFT SUMMARY PT EXCESSIVE DROWSINESS/SLEEPING T/O THE DAY. ORAL AM MEDS GIVEN LATE THIS MORNING DUE TO LETHARGY. VITALS STABLE. ABLE TO AROUSE FOR SHORT PERIODS OF TIME FOR MEDICATIONS, EATING, DRINKING. PT FAMILY AT BEDSIDE. DAUGHTER PLANNING TO TAKE THE PT HOME--SHE FEELS PT IS FEARFUL HE WON'T GO HOME. CONT TO REMIND/ENCOURAGE PT THE PLAN IS TO GO HOME. PT EVAL AND TREAT ORDERED--PLACED CALL TO PT; PER THERAPIST WILL TRY TO EVAL AND TREAT TODAY BUT MAY NOT BE UNTIL TOMORROW SHE IS THE ONLY PT TODAY WITH OTHER PATIENT'S AHEAD. ADVISED PT THAT DR FARRELL MAY DISCHARGE TOMORROW BUT WANTS EVAL FIRST. PT CONNOLLY CATHETER IN PLACE. PATENT AND DRAINING. PT NOT IMPULSIVE, PULLING ON CATH, OR IMPULSIVE. CONT TO MONITOR. BED ALARM IN PLACE.
[2023-10-10 16:55] VITALS: BP 151/64
[2023-10-10 20:33] VITALS: BP 147/95
[2023-10-11 03:43] VITALS: BP 148/74
--- NOTE | 2023-10-11 04:43 | NUR ---
NOC SHIFT SUMMARY: SLEPT SOME THROUGHOUT NIGHT. PT. CALLING OUT. PATIENT EASILY REDIRECTED. CONNOLLY IN PLACE. PT TO WORK WITH PATIENT TODAY. FAMILY WILL BE IN TODAY. BED IN LOW POSITION. CALL LIGHT WITHIN REACH.
[2023-10-11 07:56] VITALS: BP 145/75
--- NOTE | 2023-10-11 12:06 | NUR ---
FAMILY FAMILY HERE TO TAKE DAD HOME. DISCHARGE ORDERS TO [facility]. CARE ON GOING.
[2023-10-11] MEDS ORDERED: ASPI81CH PO (12:40)
[2023-10-11] MEDS ORDERED: CIPR250 PO (12:40)
[2023-10-11] MEDS ORDERED: CITALOPRAM HBR10 MG PO (12:41)
[2023-10-11] MEDS ORDERED: TIMO.5OPSO BOTHEYES (12:42)
[2023-10-11] MEDS ORDERED: VISBIOME 112.51 EACH PO (12:43)
[2023-10-11 14:46] VITALS: BP 104/54
--- NOTE | 2023-10-11 15:15 | NUR ---
DISCHARGE PT DISCHARGED HOME WITH DAUGHTERS. [facility] PER REQUEST. CONTINUE POC.
== END 2023-10-11 15:17 | disposition home or self-care (01) | DRG 698 ==
LOC: ER 12:27 → MEDS 15:50
PROVIDERS: Internal Medicine; Student in an Organized Health Care Education/Training Program; ADMIT Family Medicine
DX: T83.511A Infection and inflammatory reaction due to indwelling urethral catheter, initial encounter (principal); A41.52 Sepsis due to Pseudomonas; R65.20 Severe sepsis without septic shock; U07.1 COVID-19; G92.8 Other toxic encephalopathy; N17.9 Acute kidney failure, unspecified; E87.20 Acidosis, unspecified; Z66 Do not resuscitate; Z51.5 Encounter for palliative care; E87.6 Hypokalemia; N39.0 Urinary tract infection, site not specified; N13.9 Obstructive and reflux uropathy, unspecified; D64.9 Anemia, unspecified; F03.90 Unspecified dementia, unspecified severity, without behavioral disturbance, psychotic disturbance, mood disturbance, and anxiety; I48.0 Paroxysmal atrial fibrillation; R53.81 Other malaise; H91.90 Unspecified hearing loss, unspecified ear
CPT/HCPCS: 0241U; 36415; 51702; 71045; 76770; 80048; 80053; 80069; 81001; 83605; 83735; 84443; 85025; 87040; 87077; 87086; 87186; 93005; 93010; 93306; 96365; 97116; 97162; 99285-25; A9270; J0248; J0696; J1630; J1644; J1885; J7030; J7050

== ENCOUNTER 2023-11-06 11:57 | Inpatient (IN) | payer OTHER ==
[~2023-11-06] VITALS: Ht 177.8 cm; Wt 90.4 kg
[~2023-11-06 11:57] MED LIST changes: +ASPI81CH PO; +CIPR250 PO; +CITALOPRAM HBR10 MG PO; +FINA5 PO; +MULVITA PO; +VISBIOME 112.51 EACH PO
[2023-11-06 15:26] LABS: Source, Urine Foley catheter
[2023-11-06 15:30] LABS: BASOPHILS ABSOLUTE AUTO 0.04 K/mm3 (0.00-0.23); BASOPHILS PERCENT AUTO 0 % (0-2); EOSINOPHILS ABSOLUTE AUTO 0.01 K/mm3 (0.00-0.68); EOSINOPHILS PERCENT AUTO 0 % (0-6); Hematocrit 39.6 % (37.0-53.0); Hemoglobin 13.2 g/dL (13.5-17.5); IMMATURE GRAN ABSOLUTE AUTO 0.04 K/mm3 (0.00-0.10); IMMATURE GRAN PERCENT AUTO 0 % (0-1); LYMPHOCYTES ABSOLUTE AUTO 0.42 K/mm3 (0.84-5.20); LYMPHOCYTES PERCENT AUTO 4 % (21-46); MONOCYTES ABSOLUTE AUTO 0.67 K/mm3 (0.16-1.47); MONOCYTES PERCENT AUTO 6 % (4-13); Mean Corpuscular HGB 28.6 pg (26.0-34.0); Mean Corpuscular HGB Conc 33.3 g/dL (31.5-36.5); Mean Corpuscular Volume 86 fL (80-100); Mean Platelet Volume 10.8 fL (9.1-12.4); NEUTROPHILS ABSOLUTE AUTO 9.64 K/mm3 (1.96-9.15); NEUTROPHILS PERCENT AUTO 89 % (41-73); Platelet Count 172 K/mm3 (150-400); RDW Coefficient Variation 13.1 % (11.7-14.2); RDW Standard Deviation 40.5 fL (35.1-46.3); Red Blood Cell Count 4.61 M/mm3 (4.30-5.90); White Blood Cell Count 10.82 K/mm3 (4.00-11.30)
[2023-11-06 15:32] LABS: Appearance, Urine Turbid (Clear); Bilirubin, Urine Neg (Neg); Blood, Urine 4+ (Neg); Color, Urine Yellow (P-Yellow); Glucose Qualitative, Urine Neg (Neg); Ketones, Urine Neg (Neg); Leukocyte Esterase, Urine 3+ (Neg); Nitrite, Urine Neg (Neg); Protein, Urine 3+ (Neg); Specific Gravity, Urine 1.015 (1.003-1.022); Urobilinogen, Urine NORM (Normal)
[2023-11-06 15:49] LABS: Bun/Creatinine Ratio 23.9 (12.0-20.0); Calcium, Blood 8.9 mg/dL (8.5-10.1); Creatinine, Blood 0.84 mg/dL (0.60-1.20); Potassium, Blood 4.1 mmol/L (3.5-5.5)
[2023-11-06 15:53] LABS: Mucus Heavy (0-Heavy); White Blood Cells, Urine TNTC /hpf (0-5)
[2023-11-06 15:54] LABS: Bacteria Many /hpf; Red Blood Cells, Urine 50-100 /hpf (0-2); Squamous Epithelial Cells Rare /hpf (Few)
[2023-11-06 17:43] VITALS: BP 117/66
--- NOTE | 2023-11-06 19:11 | NUR ---
ADMISSION NOTE MR REMY WAS ADMITTED FROM THE ER TO MEDICAL UNIT AT 1710HRS. HE WAS NOT ABLE TO STAND TO TRANSFER AND SLID FROM [facility] TO HOSPITAL BED WITH FULL ASSISTANCE. HE WAS ORIENTATED TO HIS OWN NAME AND TO [place], DID NOT KNOW HE WAS IN HOSPITAL AND SAID THE DATE WAS IN THE 1960S. IV ABX INFUSING AND R ARM PIV INFILTRATED ON ARRIVAL. PIV REMOVED AND NEW PIV STARTED TO CONTINUE ABX AND START IVF. CONNOLLY CATHETER TO BEDSIDE DRAINAGE WITH YELLOW URINE IN BAG AND FRESH BLOOD AROUND GROIN AND INSERTION AREA/LEGS. CLEANSED AND NEW STAT LOCK APPLIED. SMALL COCCYX PRESSURE SORE PHTO IN CHART. MR REMY LIVES WITH HIS DAUGHTER DEISY WHO SAID THAT SHE IS HIS ORTHOPEDIC MECHANIC. SHE SAID SHE THINKS HE HAS DNR PAPERWORK AT HOME, THAT SHE WILL CHECK. SHE SAID HER BROTHER GIVES HIM HIS MEDICATIONS AND HE WAS AT WORK DSO UNABLE TO RECONCILE HOME MEDICATIONS. SHE SAID HE IS NOMALLY ABLE TO WALK AROUND IN THE HOUSE WITHOUT ASSISTANCE OF WALKER OR CANE BUT THAT HE HAS HAD A FEW "SMALL" FALLS IN THE PAST FEW MONTHS.BEDSIDE SWALLOW EVALUSTION PT WAS ABLE TO DEMONSTRATE STRONG SWALLOW ONF SALIVA AND THEN SWALLOWED 30CC REGULAR WATER WITHOUT ANY APPARANT DIFFICULTY OR COUGHING. PT IS CURRENTLY NPO STATUS. DAUGHTER DEISY SAID MR LARA HAS NO PROBEMS WITH ANY FOOD OR FLUIDS AT HOME. BED LOW, CALL LIGHT IN REACH AND BED ALARM ON.
[2023-11-06 20:26] VITALS: BP 147/72
[2023-11-07 04:48] VITALS: BP 136/73
--- NOTE | 2023-11-07 05:39 | NUR ---
SHIFT SUMMARY: PT IS ADMITTED FOR ALTERED MENTAL STATUS AND IS A DNR. IS ALERT AND ABLE TO MAKE SOME NEEDS KNOWN. ADLs HAVE BEEN 1P MIN-MOD THROUGH SHIFT. BUT HAS STAYED IN BED. DENIES PAIN OR DISCOMFORT WHEN ASKED. IV TO LEFT FOREARM IS PATENT WITH A DRESSING THAT IS CDI. HAS HAS LR RUNNING @ 75 THROUGH SHIFT X [address] AND DRAINING TEA COLORED URINE IN MODERATE AMOUNTS. PER REPORT FROM DAY SHIFT NURSE HE WAS NPO. BEDSIDE SWALLOW EVAL PERFORMED AND WITH NO NOTED ISSUES. MD NOTIFIED OF EVAL AND ADVANCED TOLERATED DIET WAS ORDERED.
[2023-11-07 06:44] LABS: BASOPHILS ABSOLUTE AUTO 0.03 K/mm3 (0.00-0.23); BASOPHILS PERCENT AUTO 1 % (0-2); EOSINOPHILS ABSOLUTE AUTO 0.06 K/mm3 (0.00-0.68); EOSINOPHILS PERCENT AUTO 1 % (0-6); Hematocrit 38.3 % (37.0-53.0); Hemoglobin 12.9 g/dL (13.5-17.5); IMMATURE GRAN ABSOLUTE AUTO 0.02 K/mm3 (0.00-0.10); IMMATURE GRAN PERCENT AUTO 0 % (0-1); LYMPHOCYTES ABSOLUTE AUTO 0.67 K/mm3 (0.84-5.20); LYMPHOCYTES PERCENT AUTO 11 % (21-46); MONOCYTES ABSOLUTE AUTO 0.68 K/mm3 (0.16-1.47); MONOCYTES PERCENT AUTO 11 % (4-13); Mean Corpuscular HGB 28.8 pg (26.0-34.0); Mean Corpuscular HGB Conc 33.7 g/dL (31.5-36.5); Mean Corpuscular Volume 86 fL (80-100); Mean Platelet Volume 10.3 fL (9.1-12.4); NEUTROPHILS PERCENT AUTO 77 % (41-73); Platelet Count 162 K/mm3 (150-400); RDW Coefficient Variation 13.2 % (11.7-14.2); RDW Standard Deviation 41.4 fL (35.1-46.3); Red Blood Cell Count 4.48 M/mm3 (4.30-5.90); White Blood Cell Count 6.26 K/mm3 (4.00-11.30)
[2023-11-07 07:20] LABS: Albumin/Globulin Ratio 0.8 (0.8-1.8); Bilirubin, Total 1.1 mg/dL (0.1-1.0); Bun/Creatinine Ratio 21.1 (12.0-20.0); Calcium, Blood 8.9 mg/dL (8.5-10.1); Creatinine, Blood 0.8 mg/dL (0.60-1.20); Globulin, Blood 3.8 g/dL (2.2-4.0); Potassium, Blood 3.9 mmol/L (3.5-5.5); Total Protein, Blood 6.8 g/dL (6.4-8.2)
[2023-11-07 07:38] VITALS: BP 142/70
[2023-11-07 15:12] VITALS: BP 127/95
[2023-11-07 16:07] VITALS: BP 153/74
--- NOTE | 2023-11-07 16:20 | NUR ---
PATIENT FELL TO THE FLOOR FROM STANDING. ACCORDING TO ANOTHER RN, THE PATIENT WAS SITTING ON THE EOB WHILE DR. ESQUIVEL WAS IN THE ROOM, THE PATIENT STOOD UP AND SET OFF THE BED ALARM. DR. ESQUIVEL ASKED THE PATIENT TO SIT BACK DOWN BUT THE PATIENT FELL, HIT THE WALL WITH HIS SHOULDER AND FELL TO THE GROUND. DR. ESQUIVEL ASKED ANOTHER STAFF MEMBER FOR HELP GETTING THE PATIENT BACK ON HIS FEET AND INTO THE CHAIR. VITALS TAKEN. NO VISIBLE INJURY. PATIENT IS IN HIS BED AT THIS TIME WITH THE BED ALARM IN PLACE. THE PATIENT IS MORE CONFUSED NOW THAN HE WAS EARLIER. FAMILY NOTIFIED BY PHONE.
--- NOTE | 2023-11-07 19:38 | NUR ---
PATIENT IS ALERT AND ORIENTED TO SELF, FAMILY AND FOLLOWING DIRECTIONS. HE IS MORE CONFUSED THIS EVENING THAN HE WAS EARLIER TODAY. THE PATIENT'S FAMILY VISITED HIM THIS SHIFT. HE SHOWERED WITH ASSISTANCE. THE PATIENT FELL THIS SHIFT WITHOUT INJURY. REPORT GIVEN TO ONCOMING RN.
[2023-11-07 22:20] VITALS: BP 152/82
[2023-11-08 04:25] VITALS: BP 160/81
--- NOTE | 2023-11-08 04:48 | NUR ---
1900: ASSUMED CARE OF PT, REPORT RECEIVED FROM DAY SHIFT RN. PT IS A/O TO SELF. MAKES NEEDS KNOWN. INDWELLING CATHETER IN PLACE, DRAINING LIGHT YELLOW URINE. MEDICATIONS PROVIDED PER ORDERS, PT TOLERATED WELL WITH WATER. DENIES PAIN/DISTRESS. NEEDS MET THROUGHOUT THE SHIFT. PT SLEPT MOST OF THE NIGHT. BED ALARM IN PLACE. CALL LIGHT WITHIN REACH.
[2023-11-08 07:25] VITALS: BP 142/79
--- NOTE | 2023-11-08 09:00 | NUR ---
PT PLEASANT COOP A/O X3. ANXIOUS TO HOME. QUITE POINT LAY IRA. STILL SOME CONFUSION. H/R REG, PACER CHEST WALL. NO TELE. X2 EDEMA BLE. LUNGS CLEAR, RESP EASY UNLABORED. ON R/A. BT X4 LAST BM NOT KNOWN BY PT . VOIDS URINAL. BED IN LOW POSITION, CALL LITE IN REACH, BED ALARM ON FOR SAFETY. STATES REALLY WANTS TO GO HOME.
--- NOTE | 2023-11-08 11:11 | NUR ---
DAUGHTER CALLED. STATES PT CALLING HER A LOT TODAY. SHE EXPECTS TO COME TO HOSP THIS AFT. VERIFIED HER PHONE.. [phone]. FORWARDED TO DR ESQUIVEL. DAUGHTER STATES SHE CAN TAKE PT HOME WHEN CAN BE MOBILE. NO OTHER CONCERNS MENTIONED TO ME.
[2023-11-08 15:03] VITALS: BP 125/81
--- NOTE | 2023-11-08 16:05 | NUR ---
PHYS THERAPY GENERALLY STATES MIGHT GO HOME WITH SUPERVISION. DAUGHTER, BAKER, STATES WOULD BE GOOD TO TAKE HIM HOME TODAY. PHYSICAL THERAPY TO UPDATE NOTES. CALLED DR ESQUIVEL TO UPDATE.
[2023-11-08] MEDS ORDERED: CIPR500 PO (17:35)
--- NOTE | 2023-11-08 18:37 | NUR ---
DISCHARGE REVIEWED WITH DAUGHTER AND PT. THEY VERBALIZED UNDERSTANDING. IV REMOVED INTACT. NO TELE. PT WHEELED TO DOOR BY AIDE. 183
== END 2023-11-08 18:28 | disposition home health service (06) | DRG 698 ==
LOC: ER 11:57 → MEDS 17:04
PROVIDERS: Emergency Medicine; ADMIT Student in an Organized Health Care Education/Training Program
PROC: 0T2BX0Z Change Drainage Device in Bladder, External Approach (ICD-10-PCS; principal; 2023-11-06)
DX: T83.511A Infection and inflammatory reaction due to indwelling urethral catheter, initial encounter (principal); G92.8 Other toxic encephalopathy; N39.0 Urinary tract infection, site not specified; E86.0 Dehydration; R54 Age-related physical debility; Z66 Do not resuscitate; I49.5 Sick sinus syndrome; G30.9 Alzheimer's disease, unspecified; F02.80 Dementia in other diseases classified elsewhere, unspecified severity, without behavioral disturbance, psychotic disturbance, mood disturbance, and anxiety; T83.028A Displacement of other urinary catheter, initial encounter; R33.9 Retention of urine, unspecified; H91.90 Unspecified hearing loss, unspecified ear; Z87.891 Personal history of nicotine dependence; Z95.0 Presence of cardiac pacemaker
CPT/HCPCS: 36415; 51702; 80048; 80053; 81001; 83735; 85025; 96365; 96366; 96367; 97110; 97112; 97161; 99284-25; A9270; J0696; J1650; J1956; J2543; J7120

== ENCOUNTER 2024-03-03 21:04 | Emergency (ER) | payer OTHER ==
[~2024-03-03] VITALS: Ht 175.3 cm; Wt 81.7 kg
[~2024-03-03 21:04] MED LIST changes: +CIPR500 PO
[2024-03-03 21:21] VITALS: BP 119/59
[2024-03-03 23:23] LABS: Source, Urine Foley catheter
[2024-03-03 23:24] LABS: Bilirubin, Urine Neg (Neg); Blood, Urine 1+ (Neg); Glucose Qualitative, Urine Neg (Neg); Ketones, Urine Neg (Neg); Leukocyte Esterase, Urine 3+ (Neg); Nitrite, Urine Neg (Neg); Protein, Urine 1+ (Neg); Specific Gravity, Urine 1.015 (1.003-1.022); Urobilinogen, Urine NORM (Normal)
[2024-03-04 01:48] LABS: Color, Urine Pale Yellow (P-Yellow)
[2024-03-04 01:49] LABS: Appearance, Urine Hazy (Clear)
[2024-03-04 01:50] LABS: Bacteria Many /hpf; Red Blood Cells, Urine 0-2 /hpf (0-2); Squamous Epithelial Cells Few /hpf (Few); White Blood Cells, Urine 50-100 /hpf (0-5)
== END 2024-03-03 23:30 | disposition home or self-care (01) ==
LOC: ER 21:04
PROVIDERS: Physician Assistant
DX: T83.091A Other mechanical complication of indwelling urethral catheter, initial encounter (principal); Z79.899 Other long term (current) drug therapy; Z79.82 Long term (current) use of aspirin; I10 Essential (primary) hypertension; Z87.891 Personal history of nicotine dependence
CPT/HCPCS: 51702; 81001; 99283-25

== ENCOUNTER 2024-04-11 17:25 | Observation (INO) | payer OTHER ==
[~2024-04-11] VITALS: Ht 172.7 cm; Wt 83.0 kg
[~2024-04-11 17:25] MED LIST changes: +ACET325 PO; +Celexa10 MG PO; +Furosemide40 MG PO; +MELATONIN5 M1 PO; +OLAN5A MM; +POTCHL20ER PO; +QUET100 PO
[2024-04-11] MEDS ORDERED: QUEtiapine Fumarate 50 MG TAB PO ONE (20:05)
[2024-04-11 23:29] LABS: BASOPHILS ABSOLUTE AUTO 0.05 K/mm3 (0.00-0.23); BASOPHILS PERCENT AUTO 1 % (0-2); EOSINOPHILS ABSOLUTE AUTO 0.27 K/mm3 (0.00-0.68); EOSINOPHILS PERCENT AUTO 3 % (0-6); Hematocrit 44.5 % (37.0-53.0); Hemoglobin 14.8 g/dL (13.5-17.5); IMMATURE GRAN ABSOLUTE AUTO 0.08 K/mm3 (0.00-0.10); IMMATURE GRAN PERCENT AUTO 1 % (0-1); LYMPHOCYTES ABSOLUTE AUTO 2.22 K/mm3 (0.84-5.20); LYMPHOCYTES PERCENT AUTO 26 % (21-46); MONOCYTES ABSOLUTE AUTO 0.85 K/mm3 (0.16-1.47); MONOCYTES PERCENT AUTO 10 % (4-13); Mean Corpuscular HGB 28.7 pg (26.0-34.0); Mean Corpuscular HGB Conc 33.3 g/dL (31.5-36.5); Mean Corpuscular Volume 86 fL (80-100); Mean Platelet Volume 10.1 fL (9.1-12.4); NEUTROPHILS ABSOLUTE AUTO 5.01 K/mm3 (1.96-9.15); NEUTROPHILS PERCENT AUTO 59 % (41-73); Platelet Count 262 K/mm3 (150-400); RDW Coefficient Variation 12.8 % (11.7-14.2); RDW Standard Deviation 40.3 fL (35.1-46.3); Red Blood Cell Count 5.16 M/mm3 (4.30-5.90); White Blood Cell Count 8.48 K/mm3 (4.00-11.30)
[2024-04-12] LABS: Albumin, Blood 3.3 g/dL (3.4-5.0); Albumin/Globulin Ratio 0.8 (0.8-1.8); Bilirubin, Total 0.7 mg/dL (0.1-1.0); Bun/Creatinine Ratio 16.6 (12.0-20.0); Calcium, Blood 9.9 mg/dL (8.5-10.1); Creatinine, Blood 0.96 mg/dL (0.60-1.20); Globulin, Blood 4.2 g/dL (2.2-4.0); Magnesium, Blood 1.5 mg/dL (1.6-2.4); Potassium, Blood 3.9 mmol/L (3.5-5.5); Total Protein, Blood 7.5 g/dL (6.4-8.2)
[2024-04-12] MEDS ORDERED: Mag Sulfate 1 GM/D5% 100ML 100 ML IV ONE (00:15)
[2024-04-12] MEDS ORDERED: D5W-1/2NS 1,000 ML IV SCH (11:10)
[2024-04-12] MEDS ORDERED: Acetaminophen 325 MG TABLET PO PRN (11:10)
[2024-04-12] MEDS ORDERED: CefTRIAXone Sodium 1,000 MG in NS 100 ML IV SCH (11:30)
[2024-04-12 16:33] VITALS: BP 152/83
--- NOTE | 2024-04-12 18:19 | NUR ---
SHIFT SUMMARY PATIENT ADMITTED TO MEDICAL FLOOR AFTER RECENT DISCHARGE YESTERDAY. FAMILY BROUGHT PATIENT BACK TO ED AFTER DISCHARGE YESTERDAY BECAUSE THEY COULD NOT TAKE CARE OF HIM AND WORSENING MENTAL STATUS. PATIENT SLEEPY BUT AROUSABLE ON ARRIVAL TO MEDICAL FLOOR. PATIENT REFUSING TO EAT BUT DRINKING WATER. PATIENT RECENTLY TREATED FOR UTI AND CONTINUES TO HAVE A CATHETER IN. NO FAMILY PRESENT WITH PATIENT THIS SHIFT.
[2024-04-12 18:50] LABS: Source, Urine Foley catheter
[2024-04-12 19:04] LABS: Bilirubin, Urine Neg (Neg); Blood, Urine 5+ (Neg); Glucose Qualitative, Urine Neg (Neg); Ketones, Urine 2+ (Neg); Leukocyte Esterase, Urine 3+ (Neg); Nitrite, Urine Neg (Neg); Protein, Urine 3+ (Neg); Specific Gravity, Urine 1.025 (1.003-1.022); Urobilinogen, Urine NORM (Normal)
[2024-04-12 19:24] LABS: Appearance, Urine Hazy (Clear); Color, Urine Pale Yellow (P-Yellow)
[2024-04-12 19:25] LABS: White Blood Cells, Urine 50-100 /hpf (0-5)
[2024-04-12 19:26] LABS: Squamous Epithelial Cells Few /hpf (Few); Transitional Epithelial Cells Few /hpf (0-Rare)
[2024-04-12 19:27] LABS: Bacteria Mod /hpf; Mucus Light (0-Heavy)
[2024-04-12 20:46] VITALS: BP 136/78
[2024-04-12] MEDS ORDERED: Lactobacil 2-S.Thermo-Bifido 1 1 Cap PO SCH (21:00)
[2024-04-13 04:35] VITALS: BP 152/83
--- NOTE | 2024-04-13 06:17 | NUR ---
SHIFT SUMMARY: PATIENT RESTLESS, DISORIENTED, SLURRY WORDS AT BASELINE. PATIENT HAD GOPI VEST PUT ON FOR GETTING OOB AND CONFUSION. PATIENT PULLED PIV, REPLACED BY RIGHT FOREARM 22G BY NURSE. D5 1/2NS INITIATED. PATIENT DID NOT SLEEP AT NIGHT, GENTLY PULLED AT LINES, CALLED FOR "SHABNAM" MULTIPLE TIMES.
[2024-04-13 06:48] LABS: BASOPHILS ABSOLUTE AUTO 0.08 K/mm3 (0.00-0.23); BASOPHILS PERCENT AUTO 1 % (0-2); EOSINOPHILS ABSOLUTE AUTO 0.31 K/mm3 (0.00-0.68); EOSINOPHILS PERCENT AUTO 3 % (0-6); Hematocrit 41.8 % (37.0-53.0); IMMATURE GRAN ABSOLUTE AUTO 0.16 K/mm3 (0.00-0.10); IMMATURE GRAN PERCENT AUTO 2 % (0-1); LYMPHOCYTES ABSOLUTE AUTO 1.54 K/mm3 (0.84-5.20); LYMPHOCYTES PERCENT AUTO 14 % (21-46); MONOCYTES ABSOLUTE AUTO 0.88 K/mm3 (0.16-1.47); MONOCYTES PERCENT AUTO 8 % (4-13); Mean Corpuscular HGB 28.9 pg (26.0-34.0); Mean Corpuscular HGB Conc 33.5 g/dL (31.5-36.5); Mean Corpuscular Volume 86 fL (80-100); Mean Platelet Volume 10.4 fL (9.1-12.4); NEUTROPHILS ABSOLUTE AUTO 8.04 K/mm3 (1.96-9.15); NEUTROPHILS PERCENT AUTO 73 % (41-73); Platelet Count 291 K/mm3 (150-400); RDW Coefficient Variation 12.6 % (11.7-14.2); RDW Standard Deviation 39.8 fL (35.1-46.3); Red Blood Cell Count 4.85 M/mm3 (4.30-5.90); White Blood Cell Count 11.01 K/mm3 (4.00-11.30)
[2024-04-13 07:11] VITALS: BP 131/67
[2024-04-13 07:14] LABS: Bun/Creatinine Ratio 23.3 (12.0-20.0); Calcium, Blood 9.5 mg/dL (8.5-10.1); Creatinine, Blood 1.03 mg/dL (0.60-1.20); Potassium, Blood 3.3 mmol/L (3.5-5.5)
[2024-04-13] MEDS ORDERED: Enoxaparin 40 MG/0.4 ML SYR SC SCH (09:00)
[2024-04-13] MEDS ORDERED: Citalopram Hydrobromide 10 MG TAB PO SCH (09:00)
[2024-04-13 15:00] VITALS: BP 164/71
--- NOTE | 2024-04-13 18:27 | NUR ---
SHIFT SUMMARY PATIENT MORE ALERT AND INTERACTIVE AT END OF SHIFT. RESTRAINTS REMOVED FOR A PERIOD OF TIME AND PLACED BACK IN RESTRAINTS AFTER GETTING OOB AND PULLING CATHETER APART. FAMILY PRESENT THIS EVENING AFTER PATIENT PLACED BACK IN VEST RESTRAINT. PATIENT CONTINUES TO BE CONFUSED. YELLING OUT AT TIMES. PATIENT IS VERY [place].
[2024-04-13 19:53] VITALS: BP 118/80
[2024-04-13] MEDS ORDERED: QUEtiapine Fumarate 25 MG Tab PO SCH (21:00)
--- NOTE | 2024-04-13 23:54 | NUR ---
MID SHIFT SUMMARY: PATIENT BLOOD PRESSURE IN 70S AND 80S SYSTOLIC. GIVEN 1L BOLUS OF NORMAL SALINE, NS INFUSION RATE INCREASED TO 150. CONFUSED, VISUAL HALLUCINATIONS. DR. TY AWARE, RECOMMENDED MOVING PATIENT TO ICU FOR CLOSER OBSERVATION. REPORT GIVEN TO DENISHA PEREIRA.
[2024-04-14 03:35] VITALS: BP 155/95
--- NOTE | 2024-04-14 06:35 | NUR ---
SHIFT SUMMARY: PATIENT CONFUSED, RESTLESS, IMPULSIVE. IN GOPI VEST BECAUSE PATIENT TRIED GETTING OOB MULTIPLE TIMES. DID NOT SLEEP THROUGH NIGHT.
[2024-04-14 07:11] VITALS: BP 167/86
[2024-04-14 14:44] VITALS: BP 158/79
--- NOTE | 2024-04-14 17:37 | NUR ---
SHIFT SUMMARY PATIENT CONTINUES TO BE CONFUSED AND RESTLESS. PATIENT UNABLE TO BE REDIRECTED AND CONTINUES TO ATTEMPT TO GET OUT OF BED. PATIENT NOT USING CALL LIGHT. FAMILY IN TO SEE PATIENT AND CONTINUE TO SAY THAT THEY ARE NOT ABLE TO TAKE HIM HOME AND CARE FOR HIM. PATIENT CONTINUES TO BE RESTRAINED WITH VEST. PATIENT NOT ABLE TO BE EVALUATED BY PT BECAUSE OF CONFUSION AND NOT ABLE TO FOLLOW DIRECTION.
[2024-04-14] MEDS ORDERED: Citalopram Hydrobromide 10 MG TAB PO SCH (18:00)
[2024-04-14 19:45] VITALS: BP 122/78
[2024-04-14] MEDS ORDERED: QUEtiapine Fumarate 50 MG TAB PO SCH (21:00)
[2024-04-15 02:58] VITALS: BP 167/90
--- NOTE | 2024-04-15 03:22 | NUR ---
SHIFT SUMMARY: PT NOT ALERT INITIALLY UNABLE TO ADMIN MEDS OR COMPLETE ASSESSMENT. PT ABLE TO OPEN EYES TO VOICE HOWEVER DOES NOT TRACK MOVEMENT WITH EYES, VERBALIZE A RESPONSE OR MAKE PURPOSEFUL MOVEMENT. PT ALERTNESS IMPROVED GRADUALLY: BEGINNING TO PICK AT IV, CLIMB OUT OF BED, AUDIBLE GROANS DISRUPTING THE UNITS GOAL IN DECREASED STIMULATION. PT PULLED SPIKE OUT OF IV CAUSING TERRENTIAL DOWNPOUR WITH FULL BED CHANGE. PT GIVEN DISTRACTION TOY, IVF REPLACED. THICKENED LIQUIDS FOR SAFETY ATTEMPTED INTAKE HOWEVER PT REFUSED AFTER MORE THAN A FEW SWALLOWS. CONNOLLY CATHETER IN PLACE AND PATENT DRAINING YELLOW URINE. FREQUENT ROUNDING TO ENSURE SAFETY.
[2024-04-15 05:45] LABS: BASOPHILS ABSOLUTE AUTO 0.06 K/mm3 (0.00-0.23); BASOPHILS PERCENT AUTO 1 % (0-2); EOSINOPHILS ABSOLUTE AUTO 0.24 K/mm3 (0.00-0.68); EOSINOPHILS PERCENT AUTO 3 % (0-6); Hematocrit 40.3 % (37.0-53.0); Hemoglobin 13.6 g/dL (13.5-17.5); IMMATURE GRAN ABSOLUTE AUTO 0.14 K/mm3 (0.00-0.10); IMMATURE GRAN PERCENT AUTO 2 % (0-1); LYMPHOCYTES ABSOLUTE AUTO 1.49 K/mm3 (0.84-5.20); LYMPHOCYTES PERCENT AUTO 16 % (21-46); MONOCYTES ABSOLUTE AUTO 0.79 K/mm3 (0.16-1.47); MONOCYTES PERCENT AUTO 8 % (4-13); Mean Corpuscular HGB 28.8 pg (26.0-34.0); Mean Corpuscular HGB Conc 33.7 g/dL (31.5-36.5); Mean Corpuscular Volume 85 fL (80-100); Mean Platelet Volume 10.4 fL (9.1-12.4); NEUTROPHILS ABSOLUTE AUTO 6.77 K/mm3 (1.96-9.15); NEUTROPHILS PERCENT AUTO 71 % (41-73); Platelet Count 300 K/mm3 (150-400); RDW Coefficient Variation 12.4 % (11.7-14.2); Red Blood Cell Count 4.73 M/mm3 (4.30-5.90); White Blood Cell Count 9.49 K/mm3 (4.00-11.30)
[2024-04-15 06:13] LABS: Bun/Creatinine Ratio 16.8 (12.0-20.0); Calcium, Blood 9.5 mg/dL (8.5-10.1); Creatinine, Blood 0.89 mg/dL (0.60-1.20); Potassium, Blood 3.5 mmol/L (3.5-5.5)
[2024-04-15 07:52] VITALS: BP 138/91
--- NOTE | 2024-04-15 09:39 | NUR ---
report received verified, a/o x1 does not follow commands and is constantly pulling at lines. attempted to feed pt but pt refused. i was able to give pt tylenol with yogurt for back pain but would not take anymore after first swallow. skin intact with iv infusing to right fa.
[2024-04-15 15:21] VITALS: BP 161/88
--- NOTE | 2024-04-15 18:38 | NUR ---
PT INSISTED HE NEEDED TO USE THE TOILET SO I ATTEMPTED TO SIT PT ON BSC. PT WAS NOT ABLE TO STAND AND UNDERSTOOD HE WILL HAVE TO USE A BEDPAN. PT SUCCESSFULLY USED THE BED GROVER AND HAD BM. PT NOW CALM, AND LAYING QUIETLY IN BED. GOPI STILL IN PLACE BUT IS NOT PULLING AT LINE AT THIS MOMENT.
[2024-04-15 19:09] VITALS: BP 146/77
[2024-04-16 04:31] VITALS: BP 169/92
--- NOTE | 2024-04-16 04:59 | NUR ---
SHIFT SUMMARY: NO ACUTE EVENTS. A&O X 1, SEVERELY SILETZ TRIBE, MUMBLING SPEECH. RESTLESS AT TIMES. DENIED PAIN. CONNOLLY DRAINING ADEQUATE URINE. IN GOPI VEST, UNABLE TO FOLLOW DIRECTIONS. PLACED IN PAJAMA PANTS TO PREVENT PULLING OF CONNOLLY. SLEPT PART OF THE NIGHT.
--- NOTE | 2024-04-16 10:53 | NUR ---
REPORT RECEIVED VERIFIED A/O X 1 VSS PT ANSWERES QUESTIONS BUT WONT OPEN EYES. EASILY AROUSABLE, WONT STOP PULLING AT LINES AND ATTEMPTS TO GET OOB WHEN AWAKE. GOPI IN PLACE, PT TURNED IN BED. 0730 ASSISTED OOB TO CHAIR VERY DIFFICULT TO TRANSFER USED WALKER AND GAIT BELT PT WOULD NOT FOLLOW DIRECTIONS, BUT I WAS SUCCESSFUL TO CHAIR WOULD RECOMMEND EITHER [facility] OR 2 PERSON ASSIST. PT SWALLOW WAS INTACT 10PERCENT EATEN.
[2024-04-16 19:57] VITALS: BP 147/74
[2024-04-17 03:14] VITALS: BP 149/82
[2024-04-17] MEDS ORDERED: OLANZapine 10 MG Vial IM ONE (04:00)
--- NOTE | 2024-04-17 05:09 | NUR ---
SHIFT SUMMARY PT A&O TO SELF. PT IS SOMNOLENT AND SPENT MOST OF SHIFT WITH EYES CLOSED AND RESPIRATIONS EVEN AND UNLABORED. WHEN PT AWAKE ENOUGH, HS MEDICATIONS ADMINISTERED AND PO INTAKE ENCOURAGED. PT IN GOPI VEST RESTRAINT DUE TO PULLING AT LINES AND ATTEMPTING OOB IN AN UNSAFE MANNER. CIRCULATION CHECKED AND INTACT, NO ADVERSE EVENTS DUE TO RESTRAINTS. VSS, NO COMPLAINTS OF CP/PRESSURE OR SOB. D5 1/2 NS RUNNING AT 75ML/HR. NO ACUTE EVENTS AT THIS TIME. PT LEFT IN A POSITION OF SAFETY WITH FALL PRECAUTIONS IN PLACE AND CALL LIGHT IN REACH.
--- NOTE | 2024-04-17 06:38 | NUR ---
PT CATHETER NO LONGER PATENT AND DRAINING. CATHETER REMOVED AND REPLACEMENT INDWELLING CHRONIC CONNOLLY PLACED. STERILE TECHNIQUE MAINTAINED, PT TOLERATED INTERVENTION WELL. PT NO LONGER SHOWING SIGNS OF DISCOMFORT AND IS SETTLED IN BED. URINE OUTPUT IS PATENT AND PALE YELLOW. CALL LIGHT IN REACH.
[2024-04-17 07:23] VITALS: BP 125/71
[2024-04-17 15:54] VITALS: BP 132/75
--- NOTE | 2024-04-17 19:18 | NUR ---
REPORT RECEIVED VERIFIED PT CATH DRAINING WELL NOW. PT IN DEEP SLEEP AND IS AROUSABLE TO TOUCH BUT QUICKLY FALLS BACK ASLEEP. PT SLEPT ALL DAY LONG AND WAS TURNED VERY 2 HOURS. PT REFUSED ALL MEALS AND WAS AN ASPIRATION RISK THROUGHOUT THE DAY. AT 1900 PT AWOKE AND WAS ABLE TO DRINK 200ML OF ENSURE. GOPI IS STILL IN PALCE AND IV STILL INFUSING
[2024-04-17 19:46] VITALS: BP 128/68
[2024-04-17] MEDS ORDERED: OLANZapine 5 MG Tab PO SCH (21:00)
--- NOTE | 2024-04-17 23:05 | NUR ---
PT ATTEMPTING TO PULL AT LINES, SOFT RESTRAINTS ORDERED TO PREVENT PULLING
[2024-04-18 03:06] VITALS: BP 161/77
--- NOTE | 2024-04-18 05:04 | NUR ---
SHIFT SUMMARY PT A&O TO SELF AND IS CONFUSED. PT SEVERE [place]. PT DOES NOT FOLLOW COMMANDS. PT VSS, NO COMPLAINTS OF CP/PRESSURE OR SOB. PT SWITCHED FROM A GOPI VEST TO SOFT WRIST RESTRAINTS IN ORDER TO PREVENT PT FROM DISLODGING CATHETER AGAIN. PT NEEDS ASSESSED Q1 HR, NO ACUTE EVENTS AT THIS TIME. PT SPENT MOST OF SHIFT IN BED WITH RESPIRATIONS EVEN AND UNLABORED. PROPER FALL PRECAUTIONS IN PLACE AND CALL LIGHT IN REACH.
[2024-04-18 05:48] LABS: Hematocrit 41.7 % (37.0-53.0); Mean Corpuscular HGB 29.2 pg (26.0-34.0); Mean Corpuscular HGB Conc 33.6 g/dL (31.5-36.5); Mean Corpuscular Volume 87 fL (80-100); Mean Platelet Volume 11.1 fL (9.1-12.4); Platelet Count 244 K/mm3 (150-400); RDW Coefficient Variation 12.9 % (11.7-14.2); RDW Standard Deviation 40.7 fL (35.1-46.3)
[2024-04-18 06:13] LABS: Albumin, Blood 3.1 g/dL (3.4-5.0); Anion Gap 10 mmol/L (3-11); Blood Urea Nitrogen 14 mg/dL (8-24); CO2, Blood 26 mmol/L (21-32); Calcium, Blood 9.6 mg/dL (8.5-10.1); Chloride, Blood 111 mmol/L (98-108); Glomerular Filtration Rate 73 (60-); Glucose, Blood 98 mg/dL (70-99); Magnesium, Blood 1.9 mg/dL (1.6-2.4); Phosphorus, Blood 2.5 mg/dL (2.5-4.9); Potassium, Blood 3.6 mmol/L (3.5-5.5); Sodium, Blood 143 mmol/L (136-145)
[2024-04-18 07:19] VITALS: BP 135/69
[2024-04-18 16:46] VITALS: BP 170/98
--- NOTE | 2024-04-18 16:51 | NUR ---
MET WITH PATIENT AND ASSISTED IN REAPPLYING RESTRAINTS. JONEL IS CONFUSED AND WAS PULLING AT LINES. I DISCUSSED CASE WITH PROVIDER AND BEDSIDE RN. PROVIDER REPORTED THAT FAMILY WAS AGREEABLE TO TRANSITIONING PATIENT TO HOSPICE. DEISY DID NOT FEEL LIKE HAVING JONEL GO THROUGH ANY TYPE OF PROCEDURE OR ARTIFICIAL NUTRITION WOULD NOT BE IN HIS BENIFIT. SPOKE TO DAUGHTER ON THE PHONE, SHE WILL BE IN TOMORROW AND PC WILL BE AVALIABLE.
--- NOTE | 2024-04-18 17:59 | NUR ---
SHIFT SUMMARY PT ALERT TO LOUD VERBAL STIMULI. PT ORIENTED TO BIRTHDAY AFTER HE WOKE UP MORE THIS MORNING. RESTRAINTS IN PLACE FOR PROTECTION OF LINES AND SAFETY. PT TOLERATING WELL. CONNOLLY IN PLACE, PATENT AND DRAINING CLEAR YELLOW URINE THOUGH PT INTAKE HAS BEEN POOR. PT TOLERATING SOME ENSURE BUT NOT MEALS. PT REFUSES MEALS AFTER HE TAKES HIS FIRST BITE. DENIES PAIN, SOB AND NV. HTN NOTED THIS AFTERNOON, UPON RECHECK, 157/94. WILL CONTINUE TO MONITOR. PT REPOSITIONED Q2 AND PRN. BED IN LOW POSITION, CALL LIGHT WITHIN REACH, BED ALARM ON. PT'S DAUGHTER WAS NOT IN TO VISIT THIS SHIFT. SEE PALLIATIVE CARE NOTE.
[2024-04-18 18:03] VITALS: BP 157/94
[2024-04-18 19:52] VITALS: BP 156/94
[2024-04-19 03:28] VITALS: BP 167/91
--- NOTE | 2024-04-19 05:58 | NUR ---
Patient confused, restless, slightly agitated for majority of night. Patient tolerated taking PO zyprexa with water, wrist restraints continued for safety, and patient observed to reposition self in bed sideways with legs over one siderail and head/shoulders over opposing side of bed. Patient requiring two person assist for repositioning in bed due to confusion/restlessness.
[2024-04-19 07:44] VITALS: BP 100/65
[2024-04-19 15:24] VITALS: BP 149/78
[2024-04-19] MEDS ORDERED: Atropine Sulfate 1% Opth Soln 2ML BTL SL PRN (15:50)
[2024-04-19] MEDS ORDERED: Morphine Sulfate 20 MG/1ML 1 ML Oral Syringe SL PRN (15:50)
[2024-04-19] MEDS ORDERED: Scopolamine Hydrobromide Patch TOP PRN (15:50)
[2024-04-19] MEDS ORDERED: LORazepam 1 MG Tab PO PRN (15:50)
--- NOTE | 2024-04-19 16:20 | NUR ---
MET WITH [facility]IC[place] FAMILY AND PHARMACOMETRICIAN TO DISCUSS PLAN OF CARE. DEISY, DAUGHTER RELAYED THAT PATIENT HAS HAD A RAPID DECLINE IN THE LAST SEVERAL WEEKS. HE WAS AMBULATING INDEPENDENTLY IN THEIR NEIGHBORHOOD, WITH NEIGHBORS KEEPING AN EYE ON HIM AND RELAYING ANY CONCERNS TO DEISY. HE IS UP TO THE CHAIR YESTERDAY BUT DIFFICULT TO TRANSFER AND REDIRECT. HE HAS NOT GOTTEN OUT OF BED TODAY. HIS APPETITE HAS STEADLY DECLINED AND HIS CURRENT ORAL INTAKE IS VERY POOR AT THIS TIME. HE WAS HAVING CONVERATIONS WITH FAMILY A FEW WEEKS AGO AND NOW HE IS NOT SPEAKING. FAMILY REPORTED THAT HE WAS MAKING EYE CONTACT BUT NOW HIS GAZE IS FIXED AND APPEARS TO LOOK THROUGH THEM. FAMILY IS AGREEABLE TO CHANGHING HIM TO COMFORT CARE AND LOOKING FOR PLACMENT ON HOSPICE. DISCUSSED WITH PROVIDER. ORDERS PLACED. PC WILL REMAIN AVALIABLE.
--- NOTE | 2024-04-19 19:44 | NUR ---
SUMMARY PT RESPONDS TO VERBAL STIMULI, NON RESPONSIVE TO QUESTIONS, UNABLE TO MAKE NEEDS KNOWN, CONNOLLY IN PLACE, TRANSITIONED TO COMFORT CARE THIS AFTERNOON. BED ALARM IN ON WITH CALL LIGHT IN REACH Q2HR TURNS
[2024-04-19 20:10] VITALS: BP 153/98
--- NOTE | 2024-04-20 05:31 | NUR ---
Patient alert to self only, unable to redirect, unable/unwilling to follow commands. Patient restless in bed, frequently removing hospital gown, sheets, brief, as well as pulling at edwards catheter line. Patient repositioned and redressed as allowed. Patient minimally compliant with medications, spitting them out. Patient not demonstrating pain or discomfort, so no PRN medications given for comfort care. Edwards catheter draining appropriately, patient tolerating room air.
--- NOTE | 2024-04-20 17:58 | NUR ---
SUMMARY COMFORT CARE, PT DOES NOT OPEN HIS EYES TO VERBAL STIMULI BUT WILL RESIST MOVING WITH REPOSITIONING. PT HAS NOT RESPONDED TO ANY ORIENTATION QUESTIONS, JUST STARES OFF TO THE SIDE, PT DID SAY "NO" WHEN I ASKED IF HE HAD PAIN. BED IS IN THE LOWEST POSITION WITH CALL LIGHT IN REACH. TURN Q 2HR WITH SUPPORT WITH PILLOWS.
--- NOTE | 2024-04-21 05:42 | NUR ---
SHIFT SUMMARY: PATIENT DISORIENTED. ONE BOWEL MOVEMENT, URINATED IN CONNOLLY CATHETER. PATIENT HAD INTERMITTENT BOUTS OF SLEEP, BROKEN BY PERIODS OF RESTLESSNESS WHEREUPON HE ATTEMPTED TO REMOVE ANY CLOTHING OR BLANKETS ON HIS PERSON. COMFORT CARE.
--- NOTE | 2024-04-21 17:08 | NUR ---
DAYSHIFT SUMMARY Patient not alert, repsonds to verbal stimuli intermittently, frequently pulls at edwards. He has been tearing off depends & blankets t/o the day. Appears restless & agitated. Edwards cath repositioned out of patient's reach. Administred Roxinol & Ativan, PRN effective, patient now appears relaxed and comfortable. Will continue to monitor behavior and comfort level.
--- NOTE | 2024-04-22 06:12 | NUR ---
SHIFT SUMMARY: PATIENT CONFUSED AND TOTALLY DISORIENTED. LABORED BREATHING. PLAQUE BUILD UP IN MOUTH, BUT PATIENT WOULD NOT ALLOW THINGS IN HIS MOUTH. PATIENT REFUSED MEDICATION. RESTLESS, BRIEF PERIODS OF SLEEP.
--- NOTE | 2024-04-22 13:27 | NUR ---
[id number] shift summary. Pt verbally aroused, nonverbal, [place]. Pt care explained slowly and up close before care provided. Pt compliant with Q 2 hour turns and transfer. Roxanol given as needed. Declines oral care. Not eating or drinking. Almeida intact with no output. Report given to Sangita Mcwilliams RN for transfer to room 334. Pt daughter Liliana informed of transfer.
--- NOTE | 2024-04-22 15:39 | NUR ---
SHIFT SUMMARY; PATEINT REMAINS ON COMFORT CARE. HE IS UNRESPONSISIVE. ONLY ROUSING WHEN TURNED Q 2 HOURS. FAMILY IS IN ROOM OFF AND ON WITH PATEINT. HIS LUNGS ARE COARSE THROUGHOUT AND HE WILL NOT LET STAFF DO ORAL CARE. HE CLENCHES MOUTH WHEN ATTEMPT TO SWAB MOUTH. TURNS ARE 2 HOURS NEEDED. LEGS ARE ELEVATED AND PILLOWS ARE MOVED TO ACCOMODATE BONY PROMINENCES AND PREVENT SKIN BREAKDOWN. RICK CONTINUE TO MONITOR THIS PATEINT CLOSELY.
--- NOTE | 2024-04-23 06:03 | NUR ---
SHIFT EDUARDO MARROQUIN IS ON COMFORT CARE, PT WAS CALM AND RELAXED FOR MOST OF THE NIGHT, I DID NOTE THAT RESPIRATION BECAME MORE FORCED DURING THE NIGHT AND PTS FLACC SCORE BEGAN TO CREEP UP, MEDICATED ONCE WITH ROXINOL. NOTED THAT PT HAD NO OUTPUT INTO HIS CATHETER BAG THIS MORNING, QUESTIONED FAST FOOD DELIVERY DRIVER, PT HAD NO OUTPUT, FURTHER ASSESSMENT REVEALED A DISTENDED BLADDER. PT BLADDER SCAN REVEALED 900ML RETAINED. HAD TO MANUALLY DRAIN BLADDER WITH PISTON SYRINGE IT WOULD NOT FLOW APPROPRIATELY. URINE APPEARS TO BE FLOWING INTO THE BAG AT THIS TIME, WILL INFORM DAYSHIFT RN ABOUT SITUATION TO ENSURE IT CONTINUES TO WORK. PT RESTING EASILY AT THIS TIME IN BED AT LOW POSITION WITH BED ALARM PLACED.
--- NOTE | 2024-04-23 18:08 | NUR ---
SHIFT SUMMARY: PT CONTINUES ON COMFORT CARE. PT MINIMALLY RESPONSIVE TO VERBAL OR REPOSITIONING BY OPENING EYES BUT DOES NOT MEANINFULLY RESPOND. PT APPEARS TO BE COMFORTABLE T/OUT THE SHIFT. PT MEDICATED PER EMAR WHEN RESPIRATIONS APPEARED MORE LABORED OR WHEN HE APPEARS RESTLESS. PT REPOSITIONED Q2H, NOT ALLOWING ORAL CARE TO BE PERFORMED BY CLOSING MOUTH AND KEEPING IT CLAMPED. PER NOC SHIFT REPORT, PROBLEMS WERE HAD W/PT'S CATHETER AND URINARY OUTPUT/FLOW. THIS SHIFT, INDWELLING CONNOLLY HAS BEEN FLOWING WELL TO GRAVITY, NOT REQUIRING ANY TROUBLESHOOTING. WILL CONTINUE TO MONITOR AND TREAT ACCORDINGLY UNTIL CHANGE OF SHIFT.
--- NOTE | 2024-04-23 22:28 | NUR ---
ASSUMED CARE WHILE PRIMARY NURSE TOOK BREAK. PT DENIES NEEDS AT THIS TIME. CALL LIGHT WITHIN REACH.
--- NOTE | 2024-04-24 01:36 | NUR ---
ASSUMED CARE OF PT WHEN PRIMARY RN WENT TO BREAK. PT DENIES NEEDS AT THIS TIME. CALL LIGHT WITHIN REACH.
--- NOTE | 2024-04-24 04:39 | NUR ---
ASSUMED CARE OF PT WHILE PRIMARY RN ON BREAK. PT DENIES NEEDS AT THIS TIME AND CALL LIGHT WITHIN REACH.
[2024-04-24] MEDS ORDERED: Acetaminophen 325 MG TABLET PT PRN (05:25)
[2024-04-24] MEDS ORDERED: LORazepam 2 MG/ML 1ML Injection IV PRN (05:25)
--- NOTE | 2024-04-24 05:37 | NUR ---
SHIFT SUMMARY NOC PT ON CC MEASURES AND STILL REMAINS UNRESPONSIVE, ONLY REACTION IS WHEN ORAL CARE IS ATTEMPTED AND PT CLOSES MOUTH TIGHTLY, AND ORAL CARE UNABLE TO BE PERFORMED. PT BREATHING HAS NOT CHANGED FROM YESTERDAY, PT STILL TACHYPNEIC WITH ACCESSORY MUSCLE USE. 2 DOSES OF ROXANOL ORAL SUSPENSION GIVEN WITH LITTLE EFFECT. PT HAS CONNOLLY IN PLACE DRAINING TO GRAVITY. PT CURRENTLY ASLEEP WITH BED IN LOWEST POSITION, AND CALL LIGHT WITHIN REACH.
--- NOTE | 2024-04-24 12:49 | NUR ---
PATIENT JOSEPH-CASTRO BREATHING AND LABORED. ROXANOL BEING GIVEN. CALL TO DAUGHTER, DEISY, TO LET HER KNOW IT MAY BE SOON. NO ANSWER AND VOICEMAIL NOT SET UP. UNABLE TO LEAVE MESSAGE.
--- NOTE | 2024-04-24 14:07 | NUR ---
RECEIVED CALL BACK FROM DAUGHTER, DEISY: VERY TEARFUL WHEN TOLD DAD WAS GETTING CLOSE. TODAY IS HER BIRTHDAY AND SHE HADN'T PLANNED ON COMING IN AND STILL IS NOT SURE IF SHE WILL.
--- NOTE | 2024-04-24 16:38 | NUR ---
MET WITH JONEL TO ASSESS. DISCUSSED CASE WITH BEDSIDE RN AND PRESS MAINTAINER. PATIENT HAS BEEN DIFFICULT TO KEEP COMFORTABLE. HE IS HAVING 15-20 SECOND APENIC PAUSES. AND SHALLOW BREATHING. DISCUSSED WITH PROVIDER. PLAN TO KEEP HIM IN [facility] HE IS SHOWING SIGNS OF ACTIVE TRANSITIONING.
--- NOTE | 2024-04-24 17:32 | NUR ---
UNRESPONSIVE. GIVEN BED BATH AND MONITORED CLOSELY BY CINTHYA KENNEDY, MOST OF DAY. LABORED, UNEVEN, JOSEPH-CASTRO. BRADYCARDIC. ANTICIPATE EXPIRATION SHORTLY. WILL REPORT TO ONCOMING RN.
--- NOTE | 2024-04-24 19:11 | NUR ---
RESPIRATORY: PATIENT IS UNRESPONSIVE, RR IS 4 WITH 25 SEC. PERIODS OF APNEA. NO S/S OF PAIN OR DISCOMFORT.
--- NOTE | 2024-04-24 22:33 | NUR ---
RESPIRATORY: RESPIRATIONS ARE NOW 10, 10 SEC. OCCASSIONAL PERIODS OF APNEA OBSERVED.
--- NOTE | 2024-04-25 06:36 | NUR ---
PATIENT HAS BEEN COMFORTABLE THROUGH THE SHIFT, REQUIREING PAIN MEDICATION ONLY ONCE FOR GRIMACE AND MOAN WITH T&P. NO URINE OUTPUT OBSERVED. THERE IS A REDDENED AREA ON COCCYX, NON BLANCHABLE. POLE PEELING MACHINE OPERATOR SPOKE WITH PATIENT SON WHO IS DRIVING UP FROM [place] TODAY.
--- NOTE | 2024-04-25 17:15 | NUR ---
SHIFT SUMMARY PATIENT HAS BEEN UNRESPONSIVE THROUGHOUT SHIFT. HE ONLY SHOWS GRIMACE OR DISCOMFORT WITH SOME REPOSITIONING. RESPIRATIONS HAVE VARIED FROM 6 TO 16, CURRENTLY 16, EVEN AND NON LABORED. PATIENT MEDICATED FOR PAIN/AIR HUNGER PER EMAR. BED IN LOW POSITION, BED ALARM ON FREQUENT ROUNDING PROVIDED.
--- NOTE | 2024-04-26 06:09 | NUR ---
Patient resting comfortably in bed, minimally responsive to stimuli, tolerating room air appropriately. No signs of air hunger overnight, Scopolomine patch placed for secretion control. Almeida catheter in place and draining appropriately.
--- NOTE | 2024-04-26 16:53 | NUR ---
SHIFT SUMMARY PT CONT WITH COMFORT CARE. PT CONT TO REMAIN UNRESPONSIVE TO VOICE OR PAIN. PT REPOSITIONED EVERY 2HRS. PT RECEIVED ROXANOL X2 THIS SHIFT FOR ABNORMAL BREATHING WITH EFFECTIVENESS NOTED.
--- NOTE | 2024-04-27 05:58 | NUR ---
Patient nonresponsive, resting comfortably in bed on room air. Patient's respiratory rate appears even, relaxed, regular. No PRN's given for comfort measures overnight. Almeida catheter in place and draining appropriately.
--- NOTE | 2024-04-27 17:27 | NUR ---
SHIFT SUMMARY PT UNRESPONSIVE, ON COMFORT CARE. EYES OPENED A COUPLE TIMES THIS SHIFT BUT NO INTERACTION. BED BATH DONE, MEPALEX CHANGED. MEDICATED ONCE THIS SHIFT, PT APPEARS COMFORTABLE AND IN NO DISTRESS. NO FAMILY AT THE BS. CONNOLLY DRAINING AND PATENT. REPOSITIONED T/O THE SHIFT. CALL LIGHT WITHIN REACH, BED LOCKED AND IN THE LOWEST POSITION. WILL REPORT TO ONCOMING NURSE.
--- NOTE | 2024-04-28 05:06 | NUR ---
Shift Summary Pt on comfort care. He was unsresponsive and sleeping t/o the night, very little signs of discomfort or air hunger. He lay still all night with a mild brow forrow breathing even and somewhat labored. I madicated him once with 5 mg Roxinol. Dark chato urine is beind drained by a Almeida. No acute changes t/o the night.
--- NOTE | 2024-04-28 18:23 | NUR ---
SUMMARY PT JOSEPH CASTRO BREATHING THIS SHIFT. TREATED AIR HUNGER PER EMAR. PT GRIMACE WITH REPOSITIONING. PER FAMILY, PLS DONT REPOSITION AT THIS TIME. PALLIATIVE CARE AWARE OF CHANGE IN BREATHING RATE
--- NOTE | 2024-04-29 06:45 | NUR ---
Shift Summary Agonal breathing, pt medicated with Roxinol for air hunger per EMAR. Almeida in place with very little output. Pt unresponsive t/o shift, no s/s of distress of discomfort. Family in the room at the start of the shift. We repositioned pt t/o the night with with no signs of pain or discomfort during pt care.
--- NOTE | 2024-04-29 18:03 | NUR ---
SHIFT SUMMARY: COMFORT CARE PT. PT REPOSITIONED Q2. MEDICATED FOUR TIMES PER EMAR FOR AIR HUNGER. FAMILY AT BEDSIDE THROUGHOUT SHIFT. PT CURRENTLY HAVE TACHYPNEA WITH VERY SHALLOW BREATHS. CALL LIGHT IN REACH.
--- NOTE | 2024-04-30 06:05 | NUR ---
SHIFT SUMMARY: Pt is admitted for acute metabolic encephalopathy and is a DNR. is not alert or responsive at this time. Is on comfort care. ADLs have been 2p with bed movements. Have not noted any SX of pain. Been medicated for air hunger through shift. Folly is intact with little output that is clear but dark chato.
--- NOTE | 2024-04-30 08:00 | NUR ---
pt laying in bed with eyes closed, nonresponsive, resperations are very shallow, on r/a, lungs are very dim t/o, hrr, can palpate pp, heel protectors applied. bed bath given. call light in reach, will continue to monitor for airhunger/pain per care plan.
--- NOTE | 2024-04-30 14:01 | NUR ---
pt has remained unchanged today, family at bedside and feels he needs pain meds, gave 10mg of roxinol, call light in reach.
--- NOTE | 2024-04-30 18:46 | NUR ---
pt found without resp or heart beat at 1835, Dr. Hernandez and charge nurses notified after two nurses confirmed .
--- NOTE | 2024-04-30 19:02 | NUR ---
THIS NURSE CALLED PT'S SON NIKKO TO NOTIFY OF PT'S PASSING. HE WOULD LIKE TO VISIT PT ONCE MORE AND THEN WILL GIVE INFORMATION FOR HOME. CHARGE NURSE, IVAN NOTIFIED
== END 2024-04-30 18:40 ==
LOC: ER 17:25 → ERHOLD 17:26 → ER 17:26 → MEDS 17:26
PROVIDERS: Internal Medicine; Student in an Organized Health Care Education/Training Program; ADMIT Internal Medicine
DX: G93.41 Metabolic encephalopathy (principal); G30.9 Alzheimer's disease, unspecified; F02.80 Dementia in other diseases classified elsewhere, unspecified severity, without behavioral disturbance, psychotic disturbance, mood disturbance, and anxiety; E83.42 Hypomagnesemia; E87.6 Hypokalemia; N39.0 Urinary tract infection, site not specified; N40.0 Benign prostatic hyperplasia without lower urinary tract symptoms; D64.9 Anemia, unspecified; I10 Essential (primary) hypertension; I49.5 Sick sinus syndrome; Z79.899 Other long term (current) drug therapy; Z87.891 Personal history of nicotine dependence; Z66 Do not resuscitate; Z51.5 Encounter for palliative care
CPT/HCPCS: 36415; 80048; 80053; 80069; 81001; 82947; 83735; 84295; 85025; 85027; 87086; 94760; 96365; 96366; 96367; 96372; 97161; 99285; A9270; G0378; J0696; J1650; J3475; J7042